=== PATIENT | male | born 1950 | race Caucasian/White ===

== ENCOUNTER 2020-01-27 17:12 | Emergency (ER) | payer MEDICARE ==
[~2020-01-27] VITALS: Ht 180.3 cm; Wt 86.2 kg
[2020-01-27] MEDS ORDERED: LEVSOD25 PO (17:26)
[2020-01-27] MEDS ORDERED: PRED20 PO (17:26)
[2020-01-27 18:10] LABS: BASOPHILS ABSOLUTE AUTO 0.01 K/mm3 (0.00-0.23); BASOPHILS PERCENT AUTO 0 % (0-2); EOSINOPHILS ABSOLUTE AUTO 0.05 K/mm3 (0.00-0.68); EOSINOPHILS PERCENT AUTO 1 % (0-6); Hematocrit 44.2 % (37.0-53.0); Hemoglobin 15.3 g/dL (13.5-17.5); IMMATURE GRAN ABSOLUTE AUTO 0.09 K/mm3 (0.00-0.10); IMMATURE GRAN PERCENT AUTO 1 % (0-1); LYMPHOCYTES ABSOLUTE AUTO 1.62 K/mm3 (0.84-5.20); LYMPHOCYTES PERCENT AUTO 16 % (21-46); MONOCYTES PERCENT AUTO 9 % (4-13); Mean Corpuscular HGB 31.6 pg (26.0-34.0); Mean Corpuscular HGB Conc 34.6 g/dL (31.5-36.5); Mean Corpuscular Volume 91 fL (80-100); Mean Platelet Volume 8.4 fL (9.1-12.4); NEUTROPHILS ABSOLUTE AUTO 7.57 K/mm3 (1.96-9.15); NEUTROPHILS PERCENT AUTO 74 % (41-73); Platelet Count 245 K/mm3 (150-400); RDW Coefficient Variation 13.7 % (11.7-14.2); RDW Standard Deviation 46.7 fL (35.1-46.3); Red Blood Cell Count 4.84 M/mm3 (4.30-5.90); White Blood Cell Count 10.24 K/mm3 (4.00-11.30)
[2020-01-27 18:19] LABS: Alanine Aminotransfer (ALT/SGP 28 U/L (12-78); Albumin, Blood 3.4 g/dL (3.4-5.0); Albumin/Globulin Ratio 1.1 (0.8-1.8); Alk Phos 115 U/L (50-136); Anion Gap 5 mmol/L (6-16); Aspartate Aminotrans (AST/SGOT 17 U/L (12-37); Bilirubin, Total 0.7 mg/dL (0.1-1.0); Blood Urea Nitrogen 15 mg/dL (8-24); Bun/Creatinine Ratio 21.1 (12.0-20.0); CO2, Blood 31 mmol/L (21-32); Chloride, Blood 94 mmol/L (98-108); Creatinine, Blood 0.71 mg/dL (0.60-1.20); Globulin, Blood 3.2 g/dL (2.2-4.0); Glomerular Filtration Rate >60 (60-); Glucose, Blood 97 mg/dL (70-99); Potassium, Blood 3.3 mmol/L (3.5-5.5); Sodium, Blood 130 mmol/L (136-145); Total Protein, Blood 6.6 g/dL (6.4-8.2)
[2020-01-27] MEDS ORDERED: CITRATE OF MAG296 ML PO (20:30)
[2020-01-27] MEDS ORDERED: Percocet 5-3251 EACH PO (20:30)
[2020-01-27] MEDS ORDERED: Cyclobenzaprine5 MG PO (23:23)
== END 2020-01-27 23:34 | disposition home or self-care (01) ==
LOC: ER 17:12
PROVIDERS: Physician Assistant
DX: D51.0 Vitamin B12 deficiency anemia due to intrinsic factor deficiency (principal); K59.00 Constipation, unspecified; M54.5 Low back pain; E03.9 Hypothyroidism, unspecified; F17.210 Nicotine dependence, cigarettes, uncomplicated; G89.29 Other chronic pain; Z91.030 Bee allergy status; Z79.52 Long term (current) use of systemic steroids; Z79.899 Other long term (current) drug therapy
CPT/HCPCS: 36415; 70450; 80053; 82607; 82746; 85025; 93005; 93010; 96361; 96374; 96375; 96376; 99284-25; A9270; J1885; J3010; J7030

== ENCOUNTER 2020-01-30 14:47 | Emergency (ER) | payer MEDICARE ==
[~2020-01-30] VITALS: Ht 180.3 cm; Wt 81.7 kg
[~2020-01-30 14:47] MED LIST: CITRATE OF MAG296 ML PO; Cyclobenzaprine5 MG PO; LEVSOD25 PO; PRED20 PO; Percocet 5-3251 EACH PO
[2020-01-30 18:01] LABS: BASOPHILS ABSOLUTE AUTO 0.01 K/mm3 (0.00-0.23); BASOPHILS PERCENT AUTO 0 % (0-2); EOSINOPHILS PERCENT AUTO 0 % (0-6); Hematocrit 40.7 % (37.0-53.0); Hemoglobin 14.1 g/dL (13.5-17.5); IMMATURE GRAN ABSOLUTE AUTO 0.09 K/mm3 (0.00-0.10); IMMATURE GRAN PERCENT AUTO 1 % (0-1); LYMPHOCYTES ABSOLUTE AUTO 0.48 K/mm3 (0.84-5.20); LYMPHOCYTES PERCENT AUTO 5 % (21-46); MONOCYTES ABSOLUTE AUTO 0.36 K/mm3 (0.16-1.47); MONOCYTES PERCENT AUTO 4 % (4-13); Mean Corpuscular HGB 31.7 pg (26.0-34.0); Mean Corpuscular HGB Conc 34.6 g/dL (31.5-36.5); Mean Corpuscular Volume 92 fL (80-100); Mean Platelet Volume 8.1 fL (9.1-12.4); NEUTROPHILS ABSOLUTE AUTO 8.19 K/mm3 (1.96-9.15); NEUTROPHILS PERCENT AUTO 90 % (41-73); Platelet Count 225 K/mm3 (150-400); RDW Coefficient Variation 13.8 % (11.7-14.2); RDW Standard Deviation 46.6 fL (35.1-46.3); Red Blood Cell Count 4.45 M/mm3 (4.30-5.90); White Blood Cell Count 9.13 K/mm3 (4.00-11.30)
[2020-01-30 18:19] LABS: Alanine Aminotransfer (ALT/SGP 27 U/L (12-78); Alk Phos 110 U/L (50-136); Anion Gap 8 mmol/L (6-16); Aspartate Aminotrans (AST/SGOT 12 U/L (12-37); Bilirubin, Total 0.5 mg/dL (0.1-1.0); Blood Urea Nitrogen 12 mg/dL (8-24); Bun/Creatinine Ratio 18.3 (12.0-20.0); CO2, Blood 30 mmol/L (21-32); Calcium, Blood 8.9 mg/dL (8.5-10.1); Chloride, Blood 100 mmol/L (98-108); Creatinine, Blood 0.66 mg/dL (0.60-1.20); Globulin, Blood 2.9 g/dL (2.2-4.0); Glomerular Filtration Rate >60 (60-); Glucose, Blood 111 mg/dL (70-99); Potassium, Blood 3.5 mmol/L (3.5-5.5); Sodium, Blood 138 mmol/L (136-145); Total Protein, Blood 5.9 g/dL (6.4-8.2); Troponin I 0.016 ng/mL (0.000-0.040)
[2020-01-30] MEDS ORDERED: Miralax17 GM PO (18:36)
== END 2020-01-30 19:00 | disposition home or self-care (01) ==
LOC: ER 14:47
PROVIDERS: Emergency Medicine
DX: R19.8 Other specified symptoms and signs involving the digestive system and abdomen (principal); E03.9 Hypothyroidism, unspecified; F17.210 Nicotine dependence, cigarettes, uncomplicated; Z79.52 Long term (current) use of systemic steroids; Z79.899 Other long term (current) drug therapy; Z91.030 Bee allergy status
CPT/HCPCS: 36415; 71045; 74018; 80053; 84484; 85025; 93005; 93010; 99284-25

== ENCOUNTER → 2020-04-29 | Outpatient (CLI) | payer MEDICARE ==
[~2020-04-29] MED LIST changes: +Ativan1 MG PO; +Cleocin HCl300 MG PO; +Magic Bullet10 MG PR; +Magnesium Citr296 ML PO; +Miralax17 GM PO; +Mupirocin22 GM TOP; +NEOPOLHCSU LEFTEAR
[2020-05-01 18:10] LABS: ADENOVIRUS F 40/41 Not Detected (Not Detected); ASTROVIRUS Not Detected (Not Detected); C DIFFICILE TOXIN A/B Not Detected (Not Detected); CRYPTOSPORIDIUM Not Detected (Not Detected); CYCLOSPORA CAYETANENSIS Not Detected (Not Detected); ENTAMOEBA HISTOLYTICA Not Detected (Not Detected); ENTEROAGGREGATIVE E COLI Not Detected (Not Detected); ENTEROPATHOGENIC E COLI Not Detected (Not Detected); ENTEROTOXIGENIC E COLI Not Detected (Not Detected); GIARDIA LAMBLIA Not Detected (Not Detected); NOROVIRUS GI/GII Not Detected (Not Detected); PLESIOMONAS SHIGELLOIDES Not Detected (Not Detected); ROTAVIRUS A Not Detected (Not Detected); SALMONELLA Not Detected (Not Detected); SAPOVIRUS Not Detected (Not Detected); SHIGA-TOXIN-PRODUCING E COLI Not Detected (Not Detected); SHIGELLA/ENTEROINVASIVE E COLI Not Detected (Not Detected); VIBRIO Not Detected (Not Detected); VIBRIO CHOLERAE Not Detected (Not Detected); YERSINIA ENTEROCOLITICA Not Detected (Not Detected)
== END ==
LOC: LAB SHORT 12:50
PROVIDERS: Physician Assistant
DX: R10.9 Unspecified abdominal pain (principal)
CPT/HCPCS: 0097U

== ENCOUNTER 2020-05-18 13:09 | Emergency (ER) | payer MEDICARE ==
[~2020-05-18] VITALS: Ht 180.3 cm; Wt 86.2 kg
[~2020-05-18 13:09] MED LIST changes: -Ativan1 MG PO; -Cleocin HCl300 MG PO; -Magic Bullet10 MG PR; -Magnesium Citr296 ML PO; -Mupirocin22 GM TOP; -NEOPOLHCSU LEFTEAR
[2020-05-18 13:41] LABS: BASOPHILS ABSOLUTE AUTO 0.02 K/mm3 (0.00-0.23); BASOPHILS PERCENT AUTO 0 % (0-2); EOSINOPHILS ABSOLUTE AUTO 0.04 K/mm3 (0.00-0.68); EOSINOPHILS PERCENT AUTO 0 % (0-6); Hemoglobin 13.7 g/dL (13.5-17.5); IMMATURE GRAN ABSOLUTE AUTO 0.08 K/mm3 (0.00-0.10); IMMATURE GRAN PERCENT AUTO 1 % (0-1); LYMPHOCYTES ABSOLUTE AUTO 0.75 K/mm3 (0.84-5.20); LYMPHOCYTES PERCENT AUTO 7 % (21-46); MONOCYTES ABSOLUTE AUTO 0.48 K/mm3 (0.16-1.47); MONOCYTES PERCENT AUTO 5 % (4-13); Mean Corpuscular HGB 30.3 pg (26.0-34.0); Mean Corpuscular HGB Conc 33.4 g/dL (31.5-36.5); Mean Corpuscular Volume 91 fL (80-100); Mean Platelet Volume 8.5 fL (9.1-12.4); NEUTROPHILS ABSOLUTE AUTO 9.29 K/mm3 (1.96-9.15); NEUTROPHILS PERCENT AUTO 87 % (41-73); NRBC ABSOLUTE 0.02 K/mm3 (0.00-0.02); NRBC Auto 0.2 /100 WBC (0.0-0.2); Platelet Count 255 K/mm3 (150-400); RDW Coefficient Variation 13.8 % (11.7-14.2); Red Blood Cell Count 4.52 M/mm3 (4.30-5.90); White Blood Cell Count 10.66 K/mm3 (4.00-11.30)
[2020-05-18 14:09] LABS: Alanine Aminotransfer (ALT/SGP 41 U/L (12-78); Albumin, Blood 3.1 g/dL (3.4-5.0); Alk Phos 130 U/L (50-136); Anion Gap 9 mmol/L (6-16); Aspartate Aminotrans (AST/SGOT 34 U/L (12-37); Bilirubin, Total 0.6 mg/dL (0.1-1.0); Blood Urea Nitrogen 12 mg/dL (8-24); CO2, Blood 28 mmol/L (21-32); Calcium, Blood 8.7 mg/dL (8.5-10.1); Chloride, Blood 97 mmol/L (98-108); Creatinine, Blood 0.75 mg/dL (0.60-1.20); Globulin, Blood 3.1 g/dL (2.2-4.0); Glomerular Filtration Rate >60 (60-); Glucose, Blood 126 mg/dL (70-99); Potassium, Blood 3.4 mmol/L (3.5-5.5); Sodium, Blood 134 mmol/L (136-145); Total Protein, Blood 6.2 g/dL (6.4-8.2); Troponin I 0.016 ng/mL (0.000-0.040)
[2020-05-18 15:07] LABS: Source, Urine Clean Catch
[2020-05-18 15:14] LABS: Appearance, Urine Clear (Clear); Bilirubin, Urine Neg (Neg); Blood, Urine Neg (Neg); Color, Urine Yellow (P-Yellow); Glucose Qualitative, Urine Neg (Neg); Ketones, Urine Neg (Neg); Leukocyte Esterase, Urine Neg (Neg); Nitrite, Urine Neg (Neg); Protein, Urine Neg (Neg); Urobilinogen, Urine NORM (Normal)
[2020-05-18] MEDS ORDERED: Cleocin HCl300 MG PO (16:53)
[2020-05-18] MEDS ORDERED: Magnesium Citr296 ML PO (16:53)
[2020-05-18] MEDS ORDERED: Magic Bullet10 MG PR (16:53)
== END 2020-05-18 17:30 | disposition home or self-care (01) ==
LOC: ER 13:09
PROVIDERS: Physician Assistant
DX: K12.2 Cellulitis and abscess of mouth (principal); K59.00 Constipation, unspecified; K05.10 Chronic gingivitis, plaque induced; Z79.52 Long term (current) use of systemic steroids
CPT/HCPCS: 36415; 74019; 80053; 81003; 83690; 84443; 84484; 85025; 93005; 93010; 96374; 99284-25; A9270; J2405; J7030

== ENCOUNTER 2020-06-21 17:30 | Emergency (ER) | payer MEDICARE ==
[~2020-06-21] VITALS: Ht 172.7 cm; Wt 90.7 kg
[~2020-06-21 17:30] MED LIST changes: +Cleocin HCl300 MG PO; +Magic Bullet10 MG PR; +Magnesium Citr296 ML PO
[2020-06-21 18:45] LABS: BASOPHILS ABSOLUTE AUTO 0.06 K/mm3 (0.00-0.23); BASOPHILS PERCENT AUTO 1 % (0-2); EOSINOPHILS ABSOLUTE AUTO 0.15 K/mm3 (0.00-0.68); EOSINOPHILS PERCENT AUTO 2 % (0-6); Hematocrit 39.9 % (37.0-53.0); IMMATURE GRAN ABSOLUTE AUTO 0.08 K/mm3 (0.00-0.10); IMMATURE GRAN PERCENT AUTO 1 % (0-1); LYMPHOCYTES ABSOLUTE AUTO 1.29 K/mm3 (0.84-5.20); LYMPHOCYTES PERCENT AUTO 18 % (21-46); MONOCYTES ABSOLUTE AUTO 0.56 K/mm3 (0.16-1.47); MONOCYTES PERCENT AUTO 8 % (4-13); Mean Corpuscular HGB 29.7 pg (26.0-34.0); Mean Corpuscular HGB Conc 32.6 g/dL (31.5-36.5); Mean Corpuscular Volume 91 fL (80-100); Mean Platelet Volume 8.4 fL (9.1-12.4); NEUTROPHILS ABSOLUTE AUTO 5.14 K/mm3 (1.96-9.15); NEUTROPHILS PERCENT AUTO 71 % (41-73); Platelet Count 220 K/mm3 (150-400); RDW Coefficient Variation 14.4 % (11.7-14.2); RDW Standard Deviation 47.1 fL (35.1-46.3); Red Blood Cell Count 4.37 M/mm3 (4.30-5.90); White Blood Cell Count 7.28 K/mm3 (4.00-11.30)
[2020-06-21 19:06] LABS: Alanine Aminotransfer (ALT/SGP 112 U/L (12-78); Albumin, Blood 3.1 g/dL (3.4-5.0); Albumin/Globulin Ratio 1.1 (0.8-1.8); Alk Phos 109 U/L (50-136); Anion Gap 10 mmol/L (6-16); Aspartate Aminotrans (AST/SGOT 99 U/L (12-37); Bilirubin, Total 0.8 mg/dL (0.1-1.0); Blood Urea Nitrogen 27 mg/dL (8-24); Bun/Creatinine Ratio 37.2 (12.0-20.0); CO2, Blood 29 mmol/L (21-32); Calcium, Blood 8.6 mg/dL (8.5-10.1); Chloride, Blood 103 mmol/L (98-108); Creatinine, Blood 0.73 mg/dL (0.60-1.20); Globulin, Blood 2.9 g/dL (2.2-4.0); Glomerular Filtration Rate >60 (60-); Glucose, Blood 123 mg/dL (70-99); Sodium, Blood 142 mmol/L (136-145); Troponin I 0.016 ng/mL (0.000-0.040)
[2020-06-21] MEDS ORDERED: Ativan1 MG PO (20:58)
[2020-06-21 21:07] LABS: Influenza A, PCR NEGATIVE (NEGATIVE); Influenza B, PCR NEGATIVE (NEGATIVE); Resp Syncytial Virus, PCR NEGATIVE (NEGATIVE); SARS-Cov-2 (COVID-19) PCR, MMC NEGATIVE (NEGATIVE)
== END 2020-06-21 21:45 | disposition home or self-care (01) ==
LOC: ER 17:30
PROVIDERS: Emergency Medicine
DX: F41.9 Anxiety disorder, unspecified (principal); E87.6 Hypokalemia; E03.9 Hypothyroidism, unspecified; Z79.52 Long term (current) use of systemic steroids; Z91.030 Bee allergy status; Z87.891 Personal history of nicotine dependence; Z79.899 Other long term (current) drug therapy; Z20.822 Contact with and (suspected) exposure to COVID-19
CPT/HCPCS: 0241U; 36415; 71045; 76705; 80053; 84484; 85025; 93005; 93010; 96374; 99285-25; A9270; J2060

== ENCOUNTER 2020-07-07 10:19 | Emergency (ER) | payer MEDICARE ==
[~2020-07-07] VITALS: Ht 172.7 cm; Wt 83.9 kg
[~2020-07-07 10:19] MED LIST changes: +Ativan1 MG PO
[2020-07-07 11:09] LABS: BASOPHILS ABSOLUTE AUTO 0.05 K/mm3 (0.00-0.23); BASOPHILS PERCENT AUTO 1 % (0-2); EOSINOPHILS ABSOLUTE AUTO 0.25 K/mm3 (0.00-0.68); EOSINOPHILS PERCENT AUTO 5 % (0-6); Hematocrit 40.3 % (37.0-53.0); Hemoglobin 13.2 g/dL (13.5-17.5); IMMATURE GRAN ABSOLUTE AUTO 0.05 K/mm3 (0.00-0.10); IMMATURE GRAN PERCENT AUTO 1 % (0-1); LYMPHOCYTES ABSOLUTE AUTO 1.23 K/mm3 (0.84-5.20); LYMPHOCYTES PERCENT AUTO 23 % (21-46); MONOCYTES ABSOLUTE AUTO 0.53 K/mm3 (0.16-1.47); MONOCYTES PERCENT AUTO 10 % (4-13); Mean Corpuscular HGB 29.9 pg (26.0-34.0); Mean Corpuscular HGB Conc 32.8 g/dL (31.5-36.5); Mean Corpuscular Volume 91 fL (80-100); Mean Platelet Volume 8.5 fL (9.1-12.4); NEUTROPHILS ABSOLUTE AUTO 3.28 K/mm3 (1.96-9.15); NEUTROPHILS PERCENT AUTO 61 % (41-73); Platelet Count 179 K/mm3 (150-400); RDW Coefficient Variation 15.2 % (11.7-14.2); RDW Standard Deviation 50.4 fL (35.1-46.3); Red Blood Cell Count 4.42 M/mm3 (4.30-5.90); White Blood Cell Count 5.39 K/mm3 (4.00-11.30)
[2020-07-07 11:41] LABS: Alanine Aminotransfer (ALT/SGP 166 U/L (12-78); Albumin, Blood 3.2 g/dL (3.4-5.0); Albumin/Globulin Ratio 1.1 (0.8-1.8); Alk Phos 104 U/L (50-136); Anion Gap 16 mmol/L (6-16); Aspartate Aminotrans (AST/SGOT 204 U/L (12-37); Bilirubin, Total 1.4 mg/dL (0.1-1.0); Blood Urea Nitrogen 16 mg/dL (8-24); Bun/Creatinine Ratio 25.6 (12.0-20.0); CO2, Blood 24 mmol/L (21-32); Calcium, Blood 8.4 mg/dL (8.5-10.1); Chloride, Blood 101 mmol/L (98-108); Creatinine, Blood 0.62 mg/dL (0.60-1.20); Globulin, Blood 2.8 g/dL (2.2-4.0); Glomerular Filtration Rate >60 (60-); Glucose, Blood 62 mg/dL (70-99); Potassium, Blood 3.4 mmol/L (3.5-5.5); Sodium, Blood 141 mmol/L (136-145)
[2020-07-07] MEDS ORDERED: NEOPOLHCSU LEFTEAR (16:42)
[2020-07-07] MEDS ORDERED: Mupirocin22 GM TOP (16:42)
== END 2020-07-07 17:00 | disposition home or self-care (01) ==
LOC: ER 10:19
PROVIDERS: Emergency Medicine
DX: H60.92 Unspecified otitis externa, left ear (principal); E03.9 Hypothyroidism, unspecified; Z79.52 Long term (current) use of systemic steroids; Z79.899 Other long term (current) drug therapy; Z87.891 Personal history of nicotine dependence
CPT/HCPCS: 71045; 74018; 80053; 84443; 85025; 93005; 93010; 99285-25; J2060; J3420

== ENCOUNTER 2023-04-12 19:39 | Inpatient (IN) | payer MEDICARE, MEDICAID ==
[~2023-04-12] VITALS: Ht 172.7 cm; Wt 92.0 kg
[~2023-04-12 19:39] MED LIST changes: +Mupirocin22 GM TOP; +NEOPOLHCSU LEFTEAR
[2023-04-12 20:08] LABS: BASOPHILS ABSOLUTE AUTO 0.01 K/mm3 (0.00-0.23); BASOPHILS PERCENT AUTO 0 % (0-2); EOSINOPHILS PERCENT AUTO 0 % (0-6); Hematocrit 37.7 % (37.0-53.0); Hemoglobin 11.8 g/dL (13.5-17.5); IMMATURE GRAN ABSOLUTE AUTO 0.04 K/mm3 (0.00-0.10); IMMATURE GRAN PERCENT AUTO 0 % (0-1); LYMPHOCYTES ABSOLUTE AUTO 0.34 K/mm3 (0.84-5.20); LYMPHOCYTES PERCENT AUTO 4 % (21-46); MONOCYTES ABSOLUTE AUTO 0.44 K/mm3 (0.16-1.47); MONOCYTES PERCENT AUTO 5 % (4-13); Mean Corpuscular HGB 29.2 pg (26.0-34.0); Mean Corpuscular HGB Conc 31.3 g/dL (31.5-36.5); Mean Corpuscular Volume 93 fL (80-100); Mean Platelet Volume 9.5 fL (9.1-12.4); NEUTROPHILS ABSOLUTE AUTO 8.59 K/mm3 (1.96-9.15); NEUTROPHILS PERCENT AUTO 91 % (41-73); Platelet Count 180 K/mm3 (150-400); RDW Coefficient Variation 17.6 % (11.7-14.2); Red Blood Cell Count 4.04 M/mm3 (4.30-5.90); White Blood Cell Count 9.42 K/mm3 (4.00-11.30)
[2023-04-12 20:28] LABS: Base Excess Venous 9.1 mmol/L; Bicarbonate Venous 30.6 mmol/L (24.0-30.0); PCO2 Venous 56.7 mmHg (38-42); pH Blood Venous 7.39 (7.34-7.37)
[2023-04-12 20:37] LABS: Albumin, Blood 2.8 g/dL (3.4-5.0); Albumin/Globulin Ratio 0.8 (0.8-1.8); Bilirubin, Total 0.6 mg/dL (0.1-1.0); Bun/Creatinine Ratio 24.3 (12.0-20.0); Calcium, Blood 8.7 mg/dL (8.5-10.1); Creatinine, Blood 1.36 mg/dL (0.60-1.20); Globulin, Blood 3.4 g/dL (2.2-4.0); Potassium, Blood 4.1 mmol/L (3.5-5.5); Thyroid Stimulating Hormone 0.33 uIU/mL (0.360-4.800); Total Protein, Blood 6.2 g/dL (6.4-8.2)
[2023-04-12] MEDS ORDERED: MAGCHL64ER (20:40)
[2023-04-12] MEDS ORDERED: POTA10T PO (20:40)
[2023-04-12] MEDS ORDERED: EUTHYROX125 MCG PO (20:41)
[2023-04-12] MEDS ORDERED: VITAMIN B125000 MC1 IM (20:41)
[2023-04-12] MEDS ORDERED: ASCO500 PO (20:41)
[2023-04-12] MEDS ORDERED: IBUP800 (20:43)
[2023-04-12 21:37] LABS: Influenza A, PCR NEGATIVE (NEGATIVE); Influenza B, PCR NEGATIVE (NEGATIVE); Resp Syncytial Virus, PCR NEGATIVE (NEGATIVE); SARS-Cov-2 (COVID-19) PCR, MMC NEGATIVE (NEGATIVE)
[2023-04-13 00:20] VITALS: BP 128/81
--- NOTE | 2023-04-13 02:17 | NUR ---
PT ARRIVED TO UNIT AT 2300. PT WAS ABLE TO TRANSFER HIMSELF FROM [facility] TO HOSPITAL BED. PT A&O x4, VSS, AFEBRILE. PT PLEASANT AND TALKATIVE. PT EXPERIENCED DYSPNEA WHILE TRANSFERING TO THE HOSPITAL BED, HOB ELEVATED. PT ON 2L VIA NC, RESP RATE EVEN AND UNLABORED, PT OXYGEN SATURATION AT 100%. EDEMA PRESENT TO BILAT FEET/ANKLES. PT HAS A LARGE RED/PURPLE SORE TO L FOOT, ULCERATION TO THE TOP OF L FOOT, WITH WEEPING BLISTERS. PRN NORCO AVAILABLE FOR PAIN MANAGEMENT. PT EDUCATION PROVIDED REGARDING [facility]'S NO SMOKING POLICY. PT ORIENTED TO ROOM AND CALL LIGHT. BED IN LOWEST POSITION, CALL LIGHT WITHIN REACH, WCTM.
[2023-04-13 04:31] VITALS: BP 111/63
[2023-04-13 05:29] LABS: Bun/Creatinine Ratio 22.7 (12.0-20.0); Calcium, Blood 8.5 mg/dL (8.5-10.1); Creatinine, Blood 1.28 mg/dL (0.60-1.20); Potassium, Blood 3.9 mmol/L (3.5-5.5)
[2023-04-13 07:30] VITALS: BP 126/67
[2023-04-13 15:08] VITALS: BP 101/74
--- NOTE | 2023-04-13 18:47 | NUR ---
SUMMARY- PT A/O X4, HAS MOD UNDERLINE ANXIETY AND DELUSIONS ABOUT MEDICATIONS AND AILMENTS IN BODY. PT HAS BEEN ON 4L NC, SATS UPPER 90'S. CELLULITIS IN L DORSAL FOOT, WITH LG DRIED BLISTER 5X5CM, CLEANSED WITH NS, REMOVED OLD TOILET PAPER STUCK TO SURFACE FROM HOME BANDAGE. ABX OINT XEREFORM, ABD, CHICKEN SKIN AND BRITTNEY WARP DONE AT 1500 WOUND CARE CONSULT RN NOT AVAILABLE TODAY. SHE CAN RE-EVAL TOMORROW WHEN AVAIL. PT HAVING PAIN DEEP IN FOOT, STATES PARTIAL RELEIF WITH NORCO 5MG, CALLED AND HAD FREQ INDREASED TO Q4. PT IS BEING DIURESED, VOIDING LG AMOUNTS. TOLERATING FOOD AND FLUIDS. HAS BEEN ON BEDREST ALL DAYL TELE SR 80-90'S. LUNGS CLEAR, NO SOB NOTED TODAY.
[2023-04-13 19:16] VITALS: BP 107/89
[2023-04-14 03:37] VITALS: BP 116/77
[2023-04-14 05:42] LABS: BASOPHILS ABSOLUTE AUTO 0.01 K/mm3 (0.00-0.23); BASOPHILS PERCENT AUTO 0 % (0-2); EOSINOPHILS ABSOLUTE AUTO 0.02 K/mm3 (0.00-0.68); EOSINOPHILS PERCENT AUTO 0 % (0-6); Hematocrit 35.6 % (37.0-53.0); Hemoglobin 10.9 g/dL (13.5-17.5); IMMATURE GRAN ABSOLUTE AUTO 0.05 K/mm3 (0.00-0.10); IMMATURE GRAN PERCENT AUTO 1 % (0-1); LYMPHOCYTES ABSOLUTE AUTO 0.66 K/mm3 (0.84-5.20); LYMPHOCYTES PERCENT AUTO 9 % (21-46); MONOCYTES ABSOLUTE AUTO 0.56 K/mm3 (0.16-1.47); MONOCYTES PERCENT AUTO 8 % (4-13); Mean Corpuscular HGB 28.4 pg (26.0-34.0); Mean Corpuscular HGB Conc 30.6 g/dL (31.5-36.5); Mean Corpuscular Volume 93 fL (80-100); Mean Platelet Volume 9.2 fL (9.1-12.4); NEUTROPHILS ABSOLUTE AUTO 6.13 K/mm3 (1.96-9.15); NEUTROPHILS PERCENT AUTO 83 % (41-73); Platelet Count 184 K/mm3 (150-400); RDW Coefficient Variation 17.2 % (11.7-14.2); RDW Standard Deviation 57.1 fL (35.1-46.3); Red Blood Cell Count 3.84 M/mm3 (4.30-5.90); White Blood Cell Count 7.43 K/mm3 (4.00-11.30)
[2023-04-14 06:19] LABS: Bun/Creatinine Ratio 26.2 (12.0-20.0); Calcium, Blood 8.8 mg/dL (8.5-10.1); Creatinine, Blood 1.22 mg/dL (0.60-1.20); Potassium, Blood 3.3 mmol/L (3.5-5.5)
[2023-04-14 07:36] VITALS: BP 107/77
[2023-04-14 14:53] VITALS: BP 112/73
--- NOTE | 2023-04-14 18:45 | NUR ---
SUMMARY- PT A/O X4, MOD ANXIETY AT BASELINE. NONCOMPLIANT WITH MULT MEDS AND TX RELATED TO PARANOIA OF MEDICAL PROCEDURES. PT IS GRANDIOSE AND PARANOID. PT WORKED WITH PHYSICAL THERAPY TODAY, BUT WAS DC'D OFF OF SERVICE BECAUSE HIS UNWILLINGNESS TO WORK WITH P.T. PT'S L FOOT WOUND DRESSED TODAY BY WOUND RN, XEREFORM TO BLISTER ON DORSAL SURFACE OF FOOT, KEREL AND BRITTNEY. LE EDEMA. HAS BEEN DIURESING PT AGGRESSIVELY. ALSO STARTED ON BETA TAPAN TODAY. HR HAD GONE INTO 150 RANGE THIS AM MULT TIMES, DR LAKHANI WAS AT BEDSIDE SHORTLY AFTER ONE OF THE EPOSODES AND IS AWARE. HR CAME DOWN INTO SR 90'S THIS AFTERNOON. PT'S PAIN CONTROLLED WITH NORCO 5MG, APPROX Q6. PT DOESN'T LIKE THE "DRUNK FEELING OF THE MED, BUT TAKES IT FOR THE PAIN. WILL REPORT ALL TO NOC RN
[2023-04-14 19:10] VITALS: BP 108/97
--- NOTE | 2023-04-14 21:57 | NUR ---
TELE MONITOR. THIS RN NOTIFIED BY TELE MONITOR THAT PATIENT HAD A 6 BEAT RUN OF V-TACH. PATIENT ASYMPTOMAIC-PATIENT DENIED CHEST PAIN/PRESSURE/TIGHTNESS OR ANY CHANGES.
--- NOTE | 2023-04-14 22:27 | NUR ---
HOSPITALIST NOTIFIED. HOSPITALIST CALLED AND NOTIFIED OF PATIENTS 6-BEAT RUN OF V-TACH AND PATIENT BEING ASYMPTOMIC-NO CHANGES ORDERED AT THIS TIME.
[2023-04-14 23:25] VITALS: BP 96/71
--- NOTE | 2023-04-14 23:34 | NUR ---
HOSPITALIST CONTACTED. HOSPITALIST CONTACTED AND NOTIFIED OF PATIENTS B/P/ B/P96/71. HOSPITALIST SAID TO NOTIFY IF MAP IS <65.
--- NOTE | 2023-04-15 00:15 | NUR ---
PATIENT C/O FEELI NAUSEOUS. PATIENT REPORTS FEELING LIKE HE WONT WAKE UP IF HE GOES TO SLEEP AND THAT HE SHOULD JUST BE ON A MEDICATION HE HAS TAKEN BEFORE THAT CLEARS EVERYTHING UP. TALKED WITH PATIENT REGARDING HIS CURRENT FEELING AND THOUGHTS-PATIENT EXPLAINS THAT HE IS NOW FEELING HOT, AND THAT HE THINKS PUTTING A WARM BLANKET ON HIS FOOT HAS SPREAD THE INFECTION ON HIS FOOT. ASKED PATIENT IF HE WAS FEELING ANXIOUS ABOUT HIS CURRENT HOSPITAL STAY-PATIENT STATED HE WAS AND THAT HE IS JUST GETTING A LOT OF NEW MEDICATIONS AND HE IS STARTING TO SWEAT BECAUSE HE FEELS HOT-PATIENTS TEMPERATURE CHECKED AT 0010 WAS 97.5 WHEN INSPECTOR AIR CARRIER TOOK TEMPERATURE FOR PATIENTS C/O FEELING HOT. TALKED WITH PATIENT ABOUT SOMETHING TO HELP WITH THE NAUSEA AND ANXIETY. PATIENT REPORTS THAT HE WOULD LIKE TO TRY SOMETHING FOR ANXIETY AND NAUSEA.
--- NOTE | 2023-04-15 00:45 | NUR ---
HOSPITALIST CONTACTED. HOSPITALIST DR. SOTELO CONTACTED AND NOTIFIED OF PATIENTS C/O FEELING HOT AND ANXIETY. DR. SOTELO ORDERED FOR A ONE TIME DOSE OF ATIVAN-SEE ORDERS. IF ATIVAN DOES NOT HELP TO NOTIFY HOSPITALIST .
[2023-04-15 04:23] VITALS: BP 98/85
[2023-04-15 05:00] LABS: BASOPHILS ABSOLUTE AUTO 0.01 K/mm3 (0.00-0.23); BASOPHILS PERCENT AUTO 0 % (0-2); EOSINOPHILS ABSOLUTE AUTO 0.09 K/mm3 (0.00-0.68); EOSINOPHILS PERCENT AUTO 1 % (0-6); Hematocrit 37.4 % (37.0-53.0); Hemoglobin 11.6 g/dL (13.5-17.5); IMMATURE GRAN ABSOLUTE AUTO 0.04 K/mm3 (0.00-0.10); IMMATURE GRAN PERCENT AUTO 1 % (0-1); LYMPHOCYTES ABSOLUTE AUTO 0.94 K/mm3 (0.84-5.20); LYMPHOCYTES PERCENT AUTO 13 % (21-46); MONOCYTES ABSOLUTE AUTO 0.69 K/mm3 (0.16-1.47); MONOCYTES PERCENT AUTO 9 % (4-13); Mean Corpuscular HGB 28.8 pg (26.0-34.0); Mean Corpuscular Volume 93 fL (80-100); Mean Platelet Volume 9.3 fL (9.1-12.4); NEUTROPHILS ABSOLUTE AUTO 5.74 K/mm3 (1.96-9.15); NEUTROPHILS PERCENT AUTO 77 % (41-73); Platelet Count 194 K/mm3 (150-400); RDW Coefficient Variation 16.9 % (11.7-14.2); RDW Standard Deviation 56.7 fL (35.1-46.3); Red Blood Cell Count 4.03 M/mm3 (4.30-5.90); White Blood Cell Count 7.51 K/mm3 (4.00-11.30)
--- NOTE | 2023-04-15 05:09 | NUR ---
SHIFT SUMMARY. PATIENT IS A/O X4, ABLE TO MAKE HIS NEEDS KNOWN. PATIENT ANXIOUS TONIGHT-MEDICATED PER EMAR X1. PATIENT C/O PAIN-MEDICATED PER EMAR X1. PATIENT AWAKE A LOT TONIGHT. HAVING TROUBLE SLEEPING-ANXIOUS THAT HE MIGHT NOT WAKE UP, TALKED WITH PATIENT-PATIENT DETERMINED HE WAS WORRIED ABOUT ALL THE CHANGES HE HAS HAD WITH HIS MEDICATIONS. PATIENT GIVEN SALTINE CRACKERS FOR C/O NAUSEA. BED IS LOCKED IN THE LOWEST POSITION WITH CALL LIGHT IN REACH.
[2023-04-15 05:23] LABS: Bun/Creatinine Ratio 29.6 (12.0-20.0); Calcium, Blood 8.9 mg/dL (8.5-10.1); Creatinine, Blood 1.15 mg/dL (0.60-1.20); Potassium, Blood 3.2 mmol/L (3.5-5.5)
[2023-04-15 07:25] VITALS: BP 119/83
[2023-04-15 10:21] VITALS: BP 102/81
[2023-04-15 16:09] VITALS: BP 110/71
--- NOTE | 2023-04-15 18:29 | NUR ---
SHIFT SUMMARY: PT IS A 73 YEAR OLD MALE HERE FOR CHF EXACERBATION AND CELLULITIS OF HIS LEFT LOWER EXTREMITY WITH A WOUND ON TOP OF HIS LEFT FOOT. HE IS RECEIVING IV ANTIBIOTICS AND WOUND CARE FOR HIS CELLULITIS AND DIURETICS FOR HIS CHF. WOUND CARE WAS PROVIDED TODAY; FOLLOWING WOUND CARE INSTRUCTIONS. PATIENT REMAINS ON BEDREST, BUT IS ABLE TO REPOSITION HIMSELF IN BED, AND USE THE URINAL. BLOOD PRESSURES HAVE BEEN STABLE THROUGHOUT THE SHIFT AND NO EVENTS ON TELEMETRY. HE USED HIS CALL LIGHT AND MAKES NEEDS KNOWN. PLAN OF CARE ONGOING.
[2023-04-15 19:19] VITALS: BP 105/74
[2023-04-16 03:30] VITALS: BP 100/70
--- NOTE | 2023-04-16 05:12 | NUR ---
NOC SHIFT SUMMARY: ALERT AND ORIENTED X 4. BEDREST. NORCO GIVEN THIS AM. PATIENT DOES NOT LIKE THE WAY IT MAKES HIM FEEL. URINAL AT BEDSIDE. BED IN LOW POSITION. CALL LIGHT WITHIN REACH.
[2023-04-16 05:15] LABS: BASOPHILS ABSOLUTE AUTO 0.01 K/mm3 (0.00-0.23); BASOPHILS PERCENT AUTO 0 % (0-2); EOSINOPHILS ABSOLUTE AUTO 0.07 K/mm3 (0.00-0.68); EOSINOPHILS PERCENT AUTO 1 % (0-6); Hemoglobin 11.2 g/dL (13.5-17.5); IMMATURE GRAN ABSOLUTE AUTO 0.04 K/mm3 (0.00-0.10); IMMATURE GRAN PERCENT AUTO 1 % (0-1); LYMPHOCYTES ABSOLUTE AUTO 0.89 K/mm3 (0.84-5.20); LYMPHOCYTES PERCENT AUTO 14 % (21-46); MONOCYTES ABSOLUTE AUTO 0.65 K/mm3 (0.16-1.47); MONOCYTES PERCENT AUTO 10 % (4-13); Mean Corpuscular HGB 28.7 pg (26.0-34.0); Mean Corpuscular HGB Conc 31.1 g/dL (31.5-36.5); Mean Corpuscular Volume 92 fL (80-100); Mean Platelet Volume 9.7 fL (9.1-12.4); NEUTROPHILS ABSOLUTE AUTO 4.58 K/mm3 (1.96-9.15); NEUTROPHILS PERCENT AUTO 73 % (41-73); Platelet Count 195 K/mm3 (150-400); RDW Coefficient Variation 16.2 % (11.7-14.2); RDW Standard Deviation 54.3 fL (35.1-46.3); White Blood Cell Count 6.24 K/mm3 (4.00-11.30)
[2023-04-16 06:10] LABS: Anion Gap Unable to Calculate mmol/L (6-16); Blood Urea Nitrogen 30 mg/dL (8-24); Bun/Creatinine Ratio 30.7 (12.0-20.0); Chloride, Blood 86 mmol/L (98-108); Creatinine, Blood 0.98 mg/dL (0.60-1.20); Glomerular Filtration Rate 80 (60-); Glucose, Blood 126 mg/dL (70-99); Potassium, Blood 3.9 mmol/L (3.5-5.5); Sodium, Blood 134 mmol/L (136-145)
[2023-04-16 06:12] LABS: CO2, Blood >45 mmol/L (21-32)
[2023-04-16 07:23] VITALS: BP 90/60
[2023-04-16 09:09] VITALS: BP 95/66
[2023-04-16 10:21] VITALS: BP 89/67
[2023-04-16 16:55] VITALS: BP 127/83
--- NOTE | 2023-04-16 18:39 | NUR ---
SHIFT SUMMARY: PT IS A 73 YEAR OLD MALE HERE FOR CHF EXACERBATION AND CELLULITIS OF HIS L LOWER EXTREMITY WITH A WOUND ON HIS DORSAL L FOOT. HE IS RECEIVING IV ANTIBIOTIC TREATMENT AND WOUND CARE. HE DID AMBULATE WITH THE FRONT WHEEL WALKER TO THE BATHROOM TWICE TODAY AND HAD 2 BOWEL MOVEMENTS. HE IS ANXIOUS, PARANOID, AND ISN'T ENTRUSTING WITH CARE BEING PROVIDED; EVEN WITH EDUCATION. TODAY HE STATED THAT HE HAD AN ADVERSE REACTION TO HIS IV ANTIBIOTIC; SWEATS AND PASSING OUT. NEITHER OF THESE SYMPTOMS WERE OBSERVED. NO EVENTS OF TELEMETRY AND VITALS WERE STABLE. DOCTOR NOTIFIED OF THIS EVENT AND NO ORDERS OR ADVISEMENT AFTER INFORMATION WAS PROVIDED. WHEN CAME TIME TO ADMINISTER 1600 DOSE OF IV ANTIBIOTICS, PATIENT REFUSED. EDUCATION PROVIDED, PATIENT CONTINUED TO REFUSE. HE VOICES THAT HE DOESN'T FEEL THAT STAFF IS LISTENING TO HIM AND THAT WE DON'T KNOW WHAT WE ARE DOING AND HE WOULD LIKE TO HAVE SOMEONE WHO KNOWS WHAT THEY ARE DOING. PATIENT'S THOUGHTS ARE CONCRETE AND THERE ISN'T MUCH CONVINCING HIM. HE IS IN BED, CALL LIGHT WITHIN REACH, BED IN LOWEST POSITION, AND NO SIGNS OR SYMPTOMS OF DISTRESS. PLAN OF CARE ONGOING.
[2023-04-16 19:25] VITALS: BP 115/74
[2023-04-17 03:21] VITALS: BP 96/81
[2023-04-17 05:21] LABS: BASOPHILS ABSOLUTE AUTO 0.01 K/mm3 (0.00-0.23); BASOPHILS PERCENT AUTO 0 % (0-2); EOSINOPHILS ABSOLUTE AUTO 0.05 K/mm3 (0.00-0.68); EOSINOPHILS PERCENT AUTO 1 % (0-6); Hematocrit 33.7 % (37.0-53.0); Hemoglobin 10.6 g/dL (13.5-17.5); IMMATURE GRAN ABSOLUTE AUTO 0.03 K/mm3 (0.00-0.10); IMMATURE GRAN PERCENT AUTO 0 % (0-1); LYMPHOCYTES ABSOLUTE AUTO 0.78 K/mm3 (0.84-5.20); LYMPHOCYTES PERCENT AUTO 12 % (21-46); MONOCYTES ABSOLUTE AUTO 0.54 K/mm3 (0.16-1.47); MONOCYTES PERCENT AUTO 8 % (4-13); Mean Corpuscular HGB 28.9 pg (26.0-34.0); Mean Corpuscular HGB Conc 31.5 g/dL (31.5-36.5); Mean Corpuscular Volume 92 fL (80-100); Mean Platelet Volume 9.3 fL (9.1-12.4); NEUTROPHILS ABSOLUTE AUTO 5.27 K/mm3 (1.96-9.15); NEUTROPHILS PERCENT AUTO 79 % (41-73); Platelet Count 200 K/mm3 (150-400); RDW Coefficient Variation 15.9 % (11.7-14.2); RDW Standard Deviation 53.6 fL (35.1-46.3); Red Blood Cell Count 3.67 M/mm3 (4.30-5.90); White Blood Cell Count 6.68 K/mm3 (4.00-11.30)
--- NOTE | 2023-04-17 05:26 | NUR ---
NOC SHIFT SUMMARY: PT. DECLINGING ANTIBIOTICS FOR LEFT FOOT CELLULITIS. PATIENT HAS MULTIPLE THINGS ON HIS BOARD TO TALK WITH MD ABOUT TODAY. MORPHINE GIVEN AT BEDTIME. SLEPT SOME OVERNIGHT. BED IN LOW POSITION. CALL LIGHT WITHIN REACH.
[2023-04-17 06:43] LABS: Blood Urea Nitrogen 27 mg/dL (8-24); Chloride, Blood 85 mmol/L (98-108); Creatinine, Blood 0.84 mg/dL (0.60-1.20); Glomerular Filtration Rate 91 (60-); Glucose, Blood 115 mg/dL (70-99); Potassium, Blood 3.3 mmol/L (3.5-5.5); Sodium, Blood 133 mmol/L (136-145)
[2023-04-17 06:44] LABS: Anion Gap Unable to Calculate mmol/L (6-16)
[2023-04-17 06:45] LABS: CO2, Blood >45 mmol/L (21-32)
[2023-04-17 07:42] VITALS: BP 99/71
--- NOTE | 2023-04-17 09:00 | NUR ---
pt laying in bed awake a/ox4, lower [place], pleasant and cooperative with care, he is excessively talkative, refused iv abx, states he's reacting badly to it, expressing frustration with medications/abx that are ordered, lungs are dim t/o, resp even and unlabored at rest, currently on 6 liters 02 via n/c, no cough noted, hrr, tele in place running sr in the 90's, piv to lfa, site is clear and patent, btx4, abd flat soft nontende, voids without diff, skin has a large wound to the top of the left foot, pix taken and in chart, dressing in place, unable to palpate pedal pulse, did find with doppler, jeremie correa, call light in reach.
[2023-04-17 09:08] LABS: Base Excess Venous 22.8 mmol/L; Bicarbonate Venous 42.4 mmol/L (24.0-30.0); PCO2 Venous 72.9 mmHg (38-42); pH Blood Venous 7.42 (7.34-7.37)
[2023-04-17 16:36] VITALS: BP 113/79
--- NOTE | 2023-04-17 19:03 | NUR ---
pt has been very talkative, and directing his care and medications. podiatry saw him today, will order xray and doppler, iv abx was changed to levaquin, he was ok with it. dressing to foot was changed, Dr. Gardner was ok with mepilex, pictures were taken and placed on chart. no further changes this shift, call light in reach.
[2023-04-17 19:41] VITALS: BP 113/77
[2023-04-18 02:48] VITALS: BP 110/81
--- NOTE | 2023-04-18 04:21 | NUR ---
NOC SHIFT SUMMARY; PT. VERY ANXIOUS AT BEGINNING OF SHIFT. ZYPREXA X 1 DOSE GIVEN WITH GOOD EFFECT. PATIENT UP TO BATHROOM INDEPENDENTLY WITH WALKER. NO C/O PAIN. AFRIN FOR NASAL CONGESTION NEEDED TWICE A DAY. BED IN LOW POSITION. CALL LIGHT WITHIN REACH.
[2023-04-18 05:02] LABS: BASOPHILS ABSOLUTE AUTO 0.01 K/mm3 (0.00-0.23); BASOPHILS PERCENT AUTO 0 % (0-2); EOSINOPHILS ABSOLUTE AUTO 0.08 K/mm3 (0.00-0.68); EOSINOPHILS PERCENT AUTO 1 % (0-6); Hemoglobin 11.1 g/dL (13.5-17.5); IMMATURE GRAN ABSOLUTE AUTO 0.07 K/mm3 (0.00-0.10); IMMATURE GRAN PERCENT AUTO 1 % (0-1); LYMPHOCYTES ABSOLUTE AUTO 0.91 K/mm3 (0.84-5.20); LYMPHOCYTES PERCENT AUTO 12 % (21-46); MONOCYTES ABSOLUTE AUTO 0.74 K/mm3 (0.16-1.47); MONOCYTES PERCENT AUTO 10 % (4-13); Mean Corpuscular HGB 28.8 pg (26.0-34.0); Mean Corpuscular HGB Conc 31.7 g/dL (31.5-36.5); Mean Corpuscular Volume 91 fL (80-100); NEUTROPHILS ABSOLUTE AUTO 5.72 K/mm3 (1.96-9.15); NEUTROPHILS PERCENT AUTO 76 % (41-73); Platelet Count 231 K/mm3 (150-400); RDW Coefficient Variation 15.9 % (11.7-14.2); RDW Standard Deviation 52.7 fL (35.1-46.3); Red Blood Cell Count 3.86 M/mm3 (4.30-5.90); White Blood Cell Count 7.53 K/mm3 (4.00-11.30)
[2023-04-18 05:37] LABS: Bun/Creatinine Ratio 23.8 (12.0-20.0); Creatinine, Blood 1.01 mg/dL (0.60-1.20); Potassium, Blood 3.2 mmol/L (3.5-5.5)
[2023-04-18 07:46] VITALS: BP 100/86
[2023-04-18 14:55] VITALS: BP 122/97
--- NOTE | 2023-04-18 18:35 | NUR ---
SHIFT SUMMARY PATIENT IS ALERT AND ORIENTED. PATIENT HAS BEEN IND IN ROOM THIS SHIFT. PATIENT HAS HAD NO ACUTE EVENTS THIS SHIFT. PATIENT HAS BEEN ON 3L NC ALL SHIFT. PATIENT HAS REQUESTED PAIN MEDS THIS SHIFT WITH MINIMAL EFFECT. PATIENT HAS NOT COMPLAINED OF SOB, NAUSEA OR VOMITTING THIS SHIFT. BED IN LOCKED AND LOWEST POSITION. CALL LIGHT IN PLACE. WILL MONITOR UNTIL SHIFT CHANGE.
[2023-04-18 19:41] VITALS: BP 102/64
[2023-04-19 03:54] VITALS: BP 112/69
[2023-04-19 05:42] LABS: BASOPHILS ABSOLUTE AUTO 0.01 K/mm3 (0.00-0.23); BASOPHILS PERCENT AUTO 0 % (0-2); EOSINOPHILS ABSOLUTE AUTO 0.04 K/mm3 (0.00-0.68); EOSINOPHILS PERCENT AUTO 1 % (0-6); Hematocrit 38.2 % (37.0-53.0); Hemoglobin 11.9 g/dL (13.5-17.5); IMMATURE GRAN ABSOLUTE AUTO 0.08 K/mm3 (0.00-0.10); IMMATURE GRAN PERCENT AUTO 1 % (0-1); LYMPHOCYTES ABSOLUTE AUTO 0.75 K/mm3 (0.84-5.20); LYMPHOCYTES PERCENT AUTO 10 % (21-46); MONOCYTES ABSOLUTE AUTO 0.59 K/mm3 (0.16-1.47); MONOCYTES PERCENT AUTO 8 % (4-13); Mean Corpuscular HGB 28.5 pg (26.0-34.0); Mean Corpuscular HGB Conc 31.2 g/dL (31.5-36.5); Mean Corpuscular Volume 92 fL (80-100); Mean Platelet Volume 8.9 fL (9.1-12.4); NEUTROPHILS ABSOLUTE AUTO 5.76 K/mm3 (1.96-9.15); NEUTROPHILS PERCENT AUTO 80 % (41-73); Platelet Count 264 K/mm3 (150-400); RDW Standard Deviation 53.6 fL (35.1-46.3); Red Blood Cell Count 4.17 M/mm3 (4.30-5.90); White Blood Cell Count 7.23 K/mm3 (4.00-11.30)
[2023-04-19 06:12] LABS: Bun/Creatinine Ratio 25.4 (12.0-20.0); Creatinine, Blood 0.9 mg/dL (0.60-1.20); Free Thyroxine 0.89 ng/dL (0.70-1.60); Magnesium, Blood 1.8 mg/dL (1.6-2.4); Potassium, Blood 3.2 mmol/L (3.5-5.5); Thyroid Stimulating Hormone 1.54 uIU/mL (0.360-4.800); Triiodothyronine, Free 1.62 pg/mL (2.18-3.98)
--- NOTE | 2023-04-19 06:36 | NUR ---
SHIFT SUMMARY 73 YR M ADMITTED ON 04/12/23 FOR LEFT FOOT CELLULITIS. FULL CODE. NO ACUTE CHANGES THIS SHIFT. PT STATED THAT HE IS NOT HAPPY WITH HIS MEDICATIONS AND THEY KEEP CHANGING EACH SHIFT BECAUSE HE HAS HAD DIFFERENT NURSES AND DOCTORS. THIS NURSE EXPLAINED TO HIM THAT HIS MEDS DO NOT CHANGE PER SHIFT. PT SUGGESTED THAT THAT HE WAS BEING GIVEN MEDS THAT WERE NOT DOCUMENTED AND THAT HE HAD ASKED TO NOT BE GIVEN. HE WAS ADAMENT THIS WAS HAPPENING SO THIS NURSE WENT BACK IN HIS EMAR AND WROTE DOWN THE ABX CHANGE THAT HE HAD 2 DAYS AGO (AT HIS REQUEST) AND THE MEDS THAT HE HAD REFUSED TO TAKE. I SPENT AT LEAST 35-45 MINUTES EXPLAINING HIS MEDS TO HIM UNTIL HE WAS SATISFIED THAT HE UNDERSTOOD WHAT HE WAS TAKING. HE HAS ASKED TO SPEAK WITH THE DOC THIS A.M. REGARDING HIS MEDS AND IF HE IS ASLEEP WHEN DOC COMES AROUND HE WOULD LIKE TO BE WOKE UP. THERE IS A NOTE ON THE DOOR OF HIS ROOM NOTING THIS.
[2023-04-19 07:21] VITALS: BP 106/70
[2023-04-19 15:56] VITALS: BP 84/58
[2023-04-19 16:54] VITALS: BP 93/61
--- NOTE | 2023-04-19 18:34 | NUR ---
SHIFT SUMMARY PT AOX4, CALLS AND MAKES HIS NEEDS KNOWN. C/O PAIN THIS SHIFT, MEDICATED PER THE EMAR. UP TO THE BR WITH A 1 ASSIST WITH THE FWW. HE HAD A BM THIS SHIFT. FRIENDS AT THE BS TODAY. CALL LIGHT WITHIN REACH, BED IN THE LOWEST POSITION. WILL REPORT TO ONCOMING NURSE.
[2023-04-19 19:13] VITALS: BP 101/65
[2023-04-20 04:03] VITALS: BP 101/66
--- NOTE | 2023-04-20 04:37 | NUR ---
SHIFT SUMMARY PT A&0 X4, COOPERATIVE WITH CARE PROVIDED. LEFT FOOT BANDAGE C/D/I. MEDICATED PER EMAR FOR FOOT PAIN. PT CURRENTLY ON 4L O2 VIA NC, WHICH IS PT BASELINE. PT IS CONTINENT AND USES URINAL. BED KEPT IN LOWEST POSITION WITH CALL LIGHT WITHIN REACH. PT CALLS APPROPRAITELY FOR NEEDS.
[2023-04-20 05:57] LABS: Bun/Creatinine Ratio 27.2 (12.0-20.0); Calcium, Blood 8.8 mg/dL (8.5-10.1); Creatinine, Blood 1.03 mg/dL (0.60-1.20); Potassium, Blood 3.6 mmol/L (3.5-5.5)
[2023-04-20 07:29] VITALS: BP 107/70
--- NOTE | 2023-04-20 17:31 | NUR ---
SHIFT SUMMARY PT AOX4, 1 ASSIST WITH THE FWW TO THE BATHROOM OR CAN USE THE URINAL INDEPENDENTLY. HE LIKES TO CONTROL HIS CARE AND THE PROCESSES, AT TIMES CAN BE RUDE TO STAFF. PT HAS BEEN MEDICATED FOR PAIN PER THE EMAR. HE IS GETTING HIS L FOOT DEBRIDE RIGHT NOW BY DR. RIVERA. DRESSING CHANGED THIS SHIFT ON THE L FOOT EARLY IN THE SHIFT. CALL LIGHT WITHIN REACH, BED IN THE LOWEST POSITION. WILL REPORT TO ONCOMING NRUSE.
[2023-04-20 18:20] VITALS: BP 110/68
[2023-04-20 21:50] VITALS: BP 126/84
[2023-04-21 02:49] VITALS: BP 100/68
--- NOTE | 2023-04-21 04:26 | NUR ---
NOC SHIFT SUMMARY: PATIENT ALERT AND COOPERATIVE THROUGHOUT SHIFT. NORCO GIVEN ONCE FOR PAIN CONTROL. PODIATRY NOTE STATED WOUND VAC POSSIBLY AND CONTINUATION OF IV ANTIBIOTICS. PT. CALLS APPROPRIATELY. BED IN LOW POSITION. CALL LIGHT WITHIN REACH.
--- NOTE | 2023-04-21 06:30 | NUR ---
PATIENT'S FRIEND, IVANNA, CALLED THIS AM. IVANNA STATES PATIENT IS TEXTING THAT HE IS BEING EVICTED TODAY FROM THE HOSPITAL. THIS RN INFORMED IVANNA THAT CASE MANAGEMENT WILL WORK ON A PLAN AND NOT EVICT THE PATIENT. IVANNA UNDERSTANDS. 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
[2023-04-21 07:48] VITALS: BP 96/62
--- NOTE | 2023-04-21 15:54 | NUR ---
WOUND CARE ORDER RECIEVED TO PLACE WOUND VAC TO L DORSAL FOOT PER DR. RIVERA. NEW PHOTO AND ASSESSMENT IN HARD CHART. WOUND CLEANSED NS. ONE PIECE BLACK FOAM APPLIED, VAC SET TO CONTINUOUS 120MMHG. PT TOLERATED WELL
[2023-04-21 16:45] VITALS: BP 113/75
--- NOTE | 2023-04-21 18:20 | NUR ---
SHIFT SUMMARY PT HAD WOUND VAC APPLIED TO L FOOT THIS AFTERNOON AND HAS HAD INCREASED PAIN TO THAT FOOT SINCE. MEDICATED WITH IBUPROFEN AND 1 HYDROCODONE WITH THE HYDROCODONE HELPING BETTER BUT DOESN'T APPEAR TO BE ENOUGH. OBTAINED AN ORDER FOR A 2ND DOSE. STATES THE PAIN EBBS AND FLOWS RANGING FROM 5-9. FRIENDLY AND CHATTY WHEN IN ROOM.
[2023-04-21 20:10] VITALS: BP 119/82
[2023-04-22 02:19] VITALS: BP 115/88
--- NOTE | 2023-04-22 06:31 | NUR ---
NOC SHIFT SUMMARY: PT HAD A PANIC ATTACK. ATIVAN 0.5 MG PO X1 GIVEN WITH GOOD EFFECT. BOWEL MOVEMENT LAST NIGHT. PT CALLS APPROPRIATELY. IBUPROFEN GIVEN FOR PAIN CONTROL. WOUND VAC IN PLACE. PT. WANTS TO TALK WITH CASE MANAGEMENT ABOUT [place] AT HIS HOUSE. PATIENT WOULD ALSO LIKE A SLEEP AID AND EYE DROPS. BED IN LOW POSITION. CALL LIGHT WITHIN REACH.
[2023-04-22 07:46] VITALS: BP 102/72
[2023-04-22 10:25] VITALS: BP 93/51
[2023-04-22 11:23] VITALS: BP 103/67
[2023-04-22 16:50] VITALS: BP 110/69
--- NOTE | 2023-04-22 17:08 | NUR ---
SHIFT SUMMARY PATIENT IS ALERT AND ORIENTED. PATIENT HAS HAD NO ACUTE EVENTS THIS SHIFT. VITAL SIGNS REVIEWED. PATIENT HAS COMPLAINED OF PAIN AND MEDICATED PER EMAR. PATIENT HAS HAD NO INSTANCES OF SOB, NAUSEA, OR VOMITTING THIS SHIFT. BED IN LOCKED AND LOWEST POSITION. CALL LIGHT IN PLACE. WILL MONITOR UNTIL SHIFT CHANGE.
[2023-04-22 19:42] VITALS: BP 104/79
[2023-04-23 03:28] VITALS: BP 119/80
--- NOTE | 2023-04-23 04:27 | NUR ---
SHIFT BILLY RADER WAS ALERT AND ORIENTED X 3-4 ON ASSESSMENT, HIS MENTATION SEEMS UNCLEAR, AND HIS ATTENTION IS ALL OVER THE PLACE. NO NEW FINDINGS ON ASSESSMENT. PT HAS NO COMPLAINTS TONIGHT. NO ACUTE EVENTS, OR NOTABLE CHANGES IN CONDITION. VSS, PATIENT ABLE TO TRANSFER WITH ASSISTANCE. WILL CONTINUE TO MONITOR PT WIDE AWAKE IN BED AT A LOW POSITION WITH THE CALL LIGHT IN REACH WHICH HE USES APPROPRIATELY.
[2023-04-23 05:13] LABS: Bun/Creatinine Ratio 23.8 (12.0-20.0); Calcium, Blood 8.9 mg/dL (8.5-10.1); Creatinine, Blood 1.05 mg/dL (0.60-1.20)
[2023-04-23 07:39] VITALS: BP 114/83
[2023-04-23] MEDS ORDERED: ALUM-MAG HYDROX30 M2 PO (11:54)
[2023-04-23] MEDS ORDERED: FAMO20 PO (11:55)
[2023-04-23] MEDS ORDERED: FURO20 PO (11:56)
[2023-04-23] MEDS ORDERED: LEVO750 PO (11:57)
[2023-04-23] MEDS ORDERED: Norco 5-325 Ta1 EACH PO (11:57)
[2023-04-23] MEDS ORDERED: Lisinopril2.5 MG PO (11:58)
[2023-04-23] MEDS ORDERED: MELATONIN5 M1 PO (11:58)
[2023-04-23] MEDS ORDERED: METO25 PO (11:59)
[2023-04-23] MEDS ORDERED: VISBIOME 112.51 EACH PO (12:02)
[2023-04-23] MEDS ORDERED: MIRALAX17 GM PO (12:02)
[2023-04-23 12:06] LABS: SARS-Cov-2 (COVID-19) PCR, MMC NEGATIVE (NEGATIVE)
[2023-04-23 15:42] VITALS: BP 91/60
--- NOTE | 2023-04-23 17:02 | NUR ---
Spiritual Care Visit. Pt. is in bed and welcomes my visit. Pt. displays evidence of wanting to share about his life. Facilitated a lengthy life review that spanned the decades. Pt. is unsettled by some of the diagnosis he was givewn. Pt. displays evidence of trust, awareness, and engagement. Prayed for the Pt. Pt. verbalized gratitude for the spiritual care visit.
[2023-04-23 19:24] VITALS: BP 100/61
--- NOTE | 2023-04-23 19:29 | NUR ---
SHIFT SUMMARY PT A&OX4. PT C/O CP DURING MORNING BREAKFAST. DR LANGLEY AWARE AND ORDERS PLACED. EKG, TROPONIN, AND CHEST X-RAY COMPLETED. PLAN WAS FOR PT TO DC TO [facility] TODAY BUT PT STATED HE DID NOT WANT TO GO TO [facility]. PLAN IS FOR POSSIBLE DC TO [facility] TOMORROW. WOUND VAC IN PLACE ON LEFT FOOT, C/D/I. MINIMAL AMOUNT OF DRAINAGE NOTED. BRITTNEY BANDAGE CHANGED. PT REFUSED TO WORK WITH OT TODAY. SPIRITUAL CARE VISITED WITH PT IN AFTERNOON. PT CALLS APPROPRIATELY. BED IN LOWEST POSITION AND CALL LIGHT IN REACH.
[2023-04-24 03:46] VITALS: BP 96/63
--- NOTE | 2023-04-24 05:13 | NUR ---
SHIFT SUMMARY PATIENT HAS HAD NO ACUTE EVENTS THIS SHIFT. VITAL SIGNS REVIEWED. PATIENT HAS NOT COMPLAINED OF PAIN, NAUSEA, SOB OR VOMITTING THIS SHIFT. PATIENT HAS HAD HIS SLEEP AID PRN AND HAS BEEN EFFECTIVE. BED IN LOCKED AND LOWEST POSITION. CALL LIGHT IN PLACE. WILL MONTIOR UNTIL SHIFT CHANGE.
[2023-04-24 05:36] LABS: Bun/Creatinine Ratio 26.7 (12.0-20.0); Calcium, Blood 8.4 mg/dL (8.5-10.1); Creatinine, Blood 0.97 mg/dL (0.60-1.20); Potassium, Blood 3.8 mmol/L (3.5-5.5)
[2023-04-24 07:35] VITALS: BP 111/69
[2023-04-24] MEDS ORDERED: HYDPAM25 PO (11:08)
--- NOTE | 2023-04-24 15:00 | NUR ---
DISCHARGE SUMMARY DISCHARGED VIA [facility]. IV REMOVED PRIOR. EDUCATION PROVIDED WHY PATIENT WASN'T ALLOWED TO KEEP IV IN PLACE AND WHY HE WASN'T RECEIVING IV ABX, ACKNOWLEDGED UNDERSTANDING. REPORT CALLED X3 TO [facility] F[facility]ILITY WITH NO ANSWER EACH TIME. WOUND VAC DRESSING IN PLACE BUT DISCONNECTED. EDUCATION PROVIDED THAT THIS WOULD BE CONTINUED AT FACILITY.
== END 2023-04-24 14:50 | DRG 264 ==
LOC: ER 19:39 → MEDS 22:11 → ENPENDDIS 04-23 11:03 → MEDS 04-24 14:50
PROVIDERS: Emergency Medicine; Family Medicine; Internal Medicine; ADMIT Internal Medicine
PROC: 0JBR0ZZ Excision of Left Foot Subcutaneous Tissue and Fascia, Open Approach (ICD-10-PCS; principal; 2023-04-20)
DX: I50.21 Acute systolic (congestive) heart failure (principal); J96.21 Acute and chronic respiratory failure with hypoxia; L03.116 Cellulitis of left lower limb; N17.9 Acute kidney failure, unspecified; I96 Gangrene, not elsewhere classified; E87.1 Hypo-osmolality and hyponatremia; Z51.5 Encounter for palliative care; E03.9 Hypothyroidism, unspecified; D64.9 Anemia, unspecified; F60.9 Personality disorder, unspecified; L97.529 Non-pressure chronic ulcer of other part of left foot with unspecified severity; L97.522 Non-pressure chronic ulcer of other part of left foot with fat layer exposed; E87.6 Hypokalemia; R53.81 Other malaise; B95.8 Unspecified staphylococcus as the cause of diseases classified elsewhere; B95.2 Enterococcus as the cause of diseases classified elsewhere; Z87.891 Personal history of nicotine dependence; Z79.52 Long term (current) use of systemic steroids; Z28.21 Immunization not carried out because of patient refusal
CPT/HCPCS: 0241U; 36415; 51798; 71045; 73630; 80048; 80053; 82803; 83735; 83880; 84439; 84443; 84481; 84484; 85025; 87070; 87075; 87077; 87186; 87205; 88305; 88312; 90471; 90714; 93005; 93010; 93925; 93971; 94760; 96374; 96375; 97110; 97161; 97164; 97530; 99285-25; A9270; C8929; J0690; J1650; J1940; J1956; J3010; J7050; J7512; Q9957; U0002

== ENCOUNTER 2023-04-25 13:36 | Inpatient (IN) | payer MEDICARE, MEDICAID ==
[2023-04-25] VITALS (17 sets, daily range): BP systolic 85–111; BP diastolic 55–92
[~2023-04-25] VITALS: Ht 172.7 cm; Wt 91.2 kg
[~2023-04-25 13:36] MED LIST changes: +ALUM-MAG HYDROX30 M2 PO; +ASCO500 PO; +EUTHYROX125 MCG PO; +FAMO20 PO; +FURO20 PO; +HYDPAM25 PO; +IBUP800; +LEVO750 PO; +Lisinopril2.5 MG PO; +MAGCHL64ER; +MELATONIN5 M1 PO; +METO25 PO; +MIRALAX17 GM PO; +Norco 5-325 Ta1 EACH PO; +POTA10T PO; +VISBIOME 112.51 EACH PO; +VITAMIN B125000 MC1 IM
[2023-04-25 13:57] LABS: BASOPHILS ABSOLUTE AUTO 0.02 K/mm3 (0.00-0.23); BASOPHILS PERCENT AUTO 0 % (0-2); EOSINOPHILS ABSOLUTE AUTO 0.05 K/mm3 (0.00-0.68); EOSINOPHILS PERCENT AUTO 1 % (0-6); Hemoglobin 10.7 g/dL (13.5-17.5); IMMATURE GRAN ABSOLUTE AUTO 0.12 K/mm3 (0.00-0.10); IMMATURE GRAN PERCENT AUTO 1 % (0-1); LYMPHOCYTES ABSOLUTE AUTO 0.74 K/mm3 (0.84-5.20); LYMPHOCYTES PERCENT AUTO 8 % (21-46); MONOCYTES ABSOLUTE AUTO 0.91 K/mm3 (0.16-1.47); MONOCYTES PERCENT AUTO 10 % (4-13); Mean Corpuscular HGB 29.1 pg (26.0-34.0); Mean Corpuscular HGB Conc 32.4 g/dL (31.5-36.5); Mean Corpuscular Volume 90 fL (80-100); Mean Platelet Volume 8.9 fL (9.1-12.4); NEUTROPHILS ABSOLUTE AUTO 7.04 K/mm3 (1.96-9.15); NEUTROPHILS PERCENT AUTO 79 % (41-73); NRBC ABSOLUTE 0.02 K/mm3 (0.00-0.02); NRBC Auto 0.2 /100 WBC (0.0-0.2); Platelet Count 201 K/mm3 (150-400); RDW Coefficient Variation 15.9 % (11.7-14.2); RDW Standard Deviation 52.2 fL (35.1-46.3); Red Blood Cell Count 3.68 M/mm3 (4.30-5.90); White Blood Cell Count 8.88 K/mm3 (4.00-11.30)
[2023-04-25 14:09] LABS: Albumin, Blood 2.8 g/dL (3.4-5.0); Bilirubin, Total 0.2 mg/dL (0.1-1.0); Bun/Creatinine Ratio 20.5 (12.0-20.0); Calcium, Blood 8.1 mg/dL (8.5-10.1); Creatinine, Blood 1.12 mg/dL (0.60-1.20); Globulin, Blood 2.9 g/dL (2.2-4.0); Potassium, Blood 4.1 mmol/L (3.5-5.5); Total Protein, Blood 5.7 g/dL (6.4-8.2)
--- NOTE | 2023-04-25 17:22 | NUR ---
ARRIVAL TO ICU PT ARRIVES TO ICU FOR HYPOTENSION AT 1632. PT D/C'D FROM [facility] ON 04/24 FOR LEFT FOOT ULCERATION/DEBRIDEMENT. WAS D/C'D TO SNF. RETURNED TO ER FOR LIGHTHEADNESS. PT STATES THIS IS BETTER. ARRIVES c LEVO INFUSING VIA LFA PIV AT 3 MCG/MIN, PLACED ON STANDBY SHORTLY AFTER ARRIVAL, MAP CURRENTLY >65. PT A&OX 4, RAPID SPEECH. FOLLOWS COMMANDS. SR c PVCS ON MONITOR, RATE 80'S. HOME O2, ON 2L VIA NC, >95%. LUNGS CLEAR. PT P/W/D. ABD ROUND, SOFT, NON TENDER. BT X 4. ULCERATION TO LEFT FOOT, PHOTOS IN CHARGE, [id number], BLEEDING. WOUND VAC BEING PLACED. WILL CONTINUE TO MONITOR UNTIL REPORT TO ONCOMING NURSE.
--- NOTE | 2023-04-25 22:22 | NUR ---
ASSUMED CARE AT 1900 PT LAYING IN BED WATCHING TV ON HIS PHONE AT SHIFT CHANGE. HE IS A/O X4 AND VERY TALKATIVE; CHALLENGING TO FOLLOW HIS CONVERSATION AT TIMES BUT HAS BEEN POLITE TO THIS RN; PRESSURED SPEECH NOTED; HE MAKES HIS NEEDS KNONW. PT RATING 8/10 SHARP THROBBING PAIN TO HIS LT FOOT; CALL MADE TO HOSPITALIST FOR PO PAIN MEDS THAT PT STATES HE WAS TAKING PREVIOUSLY FOR PAIN; NEW ORDERS PROVIDED FOR NORCO; AFTER PRN PAIN IS NOW A 5/10. SPO2 >96% ON 2L NC. HR 80'S. SBP 100-120'S; LEVOPHED OFF. USING URINAL INDEPENDENTLY. WOUND VAC NOTED TO LT FOOT WOUND; DRESSING C/D/I WITH SMALL AMOUNT OF RED DRAINAGE INTO WOUND VAC. SEE SHIFT ASSESSMENT FOR FULL ASSESSMENT.
[2023-04-26] VITALS (23 sets, daily range): BP systolic 86–136; BP diastolic 52–86
[2023-04-26 03:31] LABS: BASOPHILS ABSOLUTE AUTO 0.01 K/mm3 (0.00-0.23); BASOPHILS PERCENT AUTO 0 % (0-2); EOSINOPHILS ABSOLUTE AUTO 0.01 K/mm3 (0.00-0.68); EOSINOPHILS PERCENT AUTO 0 % (0-6); Hematocrit 31.3 % (37.0-53.0); Hemoglobin 9.9 g/dL (13.5-17.5); IMMATURE GRAN ABSOLUTE AUTO 0.06 K/mm3 (0.00-0.10); IMMATURE GRAN PERCENT AUTO 1 % (0-1); LYMPHOCYTES PERCENT AUTO 8 % (21-46); MONOCYTES ABSOLUTE AUTO 0.54 K/mm3 (0.16-1.47); MONOCYTES PERCENT AUTO 8 % (4-13); Mean Corpuscular HGB 28.6 pg (26.0-34.0); Mean Corpuscular HGB Conc 31.6 g/dL (31.5-36.5); Mean Corpuscular Volume 91 fL (80-100); Mean Platelet Volume 8.8 fL (9.1-12.4); NEUTROPHILS ABSOLUTE AUTO 5.93 K/mm3 (1.96-9.15); NEUTROPHILS PERCENT AUTO 83 % (41-73); Platelet Count 182 K/mm3 (150-400); RDW Coefficient Variation 15.7 % (11.7-14.2); RDW Standard Deviation 51.8 fL (35.1-46.3); Red Blood Cell Count 3.46 M/mm3 (4.30-5.90); White Blood Cell Count 7.15 K/mm3 (4.00-11.30)
[2023-04-26 03:48] LABS: Bun/Creatinine Ratio 19.7 (12.0-20.0); Creatinine, Blood 0.96 mg/dL (0.60-1.20); Potassium, Blood 4.3 mmol/L (3.5-5.5)
--- NOTE | 2023-04-26 06:32 | NUR ---
END OF SHIFT SUMMARY NO ACUTE EVENTS OVERNIGHT. PT WAS ABLE TO REST COMFORTABLY AFTER PRN NORCO GIVEN. HE IS DISORIENTED WHEN HE FIRST WAKES UP FROM SLEEPING BUT CAN BE REORIENTED EASILY; YELLS OUT WHEN HE NEEDS HELP. SPO2 >92% ON 2L NC. HR 70-90'S. SBP 80-110'S WITH MAP >65 CONTINOUSLY. TOLERATING PO INTAKE WELL. USES URINAL WITH MINIMAL ASSISTANCE FOR CORD MANAGEMENT. WOUND VAC IN PLACE ALL NIGHT; MINIMAL OUTPUT INTO CANISTER. WILL REPORT TO AM RN WHEN AVAILABLE.
--- NOTE | 2023-04-26 07:56 | NUR ---
ASSUMED CARE REPORT FROM EVELYN DAVIS AT 0700. PT RESTING IN BED. WAKES c VERBAL STIMULI. MED c TELE STATUS. A&OX 4. FOLLOWS COMMANDS. REPORTS POOR NIGHT OF SLEEP D/T CORDS. PT STATES PAIN TO LEFT FOOT 08/10. WOUND VAC IN PLACE c 120 MMHG SUCTION, SCANT RED DRAINING IN TUBING. LUNGS CLEAR. HOME O2 AT 4L. SR ON MONITOR c MULTIPLE PVC'S. BP STABLE, MAP>65. PIV X 2. PT c RAMBLING, PRESSURED SPEECH BUT COOPERATIVE c CARE. REQUESTS TO HAVE DIFFERENT HOSPITALIST, CALL MADE BY AIR CONDITIONING INSULATION INSTALLER. WILL CONTINUE TO MONITOR.
--- NOTE | 2023-04-26 10:48 | NUR ---
UPDATE PT CONTINUES TO HAVE PRESSURED, PARANOID SPEECH. REFUSING TO LET DR LANGLEY EVAULATE HIM, REQUESTS ANOTHER PROVIDER. DR SOTELO TO ROOM. AFTER DR SOTELO LEAVES, PT CONTINUES TO DISTRUST AND SPEAK NEGATIVELY ABOUT DR SOTELO AND ALL MEDICAL PROVIDERS HE HAS ENCOUNTERED. ATTEMPTED TO REASSURE, CHALLENGING.
--- NOTE | 2023-04-26 17:33 | NUR ---
SHIFT SUMMARY NO ACUTE CHANGES THIS SHIFT. PT CONTINUE TO HAVE PRESSURED, PARANOID SPEECH. DOES COOPERATE c CARE BUT CAN BE IRRITABLE. A&OX 3. FOLLOWS COMMANDS. LUNGS CLEAR. HOME O2 AT 4L VIA NC. SR c MULTIPLE PVCS ON MONITOR. PT REFUSED TO TAKE LISINOPRIL BECAUSE HE "NEEDS MY BLOOD PRESSURE TO BE 140/80 OR I FEEL LIKE CRAP." EDUCATED PT REGARDING HF AND HTN, PT AGREED TO TAKE METOPROLOL BUT REFUSED LISINOPRIL. ALSO REFUSED PROBIOTIC D/T ABD BLOATING. ABD ROUND, SOFT, NON TENDER. BT X 4. PT STANDS AT BEDSIDE TO USE URINAL, STANDBY ASSIST, PT UNSTEADY. WOUND VAC REMAINS IN PLACE TO LEFT FOOT. PT DENIES PAIN TO FOOT THIS SHIFT. DOES C/O ANXIETY AND DEPRESSION. MEDICATED c ATARAX c MINIMAL REPORTED EFFECT. WILL CONTINUE TO MONITOR UNTIL REPORT TO ONCOMING NURSE.
--- NOTE | 2023-04-26 21:00 | NUR ---
ASSUMED CARE PT IS A&O X3; SPO2 >92% ON 4LNC; MAP >65; HR IN 80-90'S W/ FREQUENT PVC'S. PT DENIES CP, SOB, OR NAUSEA. DENIES PAIN. PT IS PLEASANT AND COOPERATIVE W/ CARE.
[2023-04-27] VITALS (16 sets, daily range): BP systolic 93–136; BP diastolic 66–93
--- NOTE | 2023-04-27 05:40 | NUR ---
SHIFT SUMMARY PT SLEPT/RESTED QUIETLY T/O NIGHT. SPO2 >92% ON 4LNC; MAP >65; RATE IN THE 80'S W/ PVC'S. NO ACUTE EVENTS OVERNIGHT. DRESSING/WOUNDVAC REMAINS IN PLACE. PT UP TO USE URINAL W/ SBA; NEURO APPEARS TO REMAIN UNCHANGED.
--- NOTE | 2023-04-27 09:07 | NUR ---
CARE OF PT ASSUMED AT 0700. PT AWAKE AND ALERT, OX3. PT C/O ANXIETY. PT HAS PRESSURED SPEECH. PT HAS SOME PARANOID THOUGHTS ABOUT MEDICAL ESTABLISHMENTS AND PHYSICIANS "MAKING ME WORSE/SICKER". PT STATES HE HAD TO LEAVE THE STATE TO HEAL. PT BECAME UPSET WHEN CARDIAC MEDS REVIEWED. PT STATES HE DOES NOT HAVE HEART PROBLEMS AND THAT THE [facility] MADE IT UP AND CAUSED MORE PROBLEMS. PT REQUEST THAT "HEART ISSUES" BE REMOVED FROM HIS RECORD. HEART RATE IRREGULAR THIS AM AND WAS DIFFICULT TO DIAGNOSIS THERE WAS INCREASED ARTIFACT D/T PT MOVEMENT. EKG TAKEN TO R/O AFIB. EKG READS SINUS TACH W PAC'S. PT C/O PAIN 5/10 TO RIGHT FOOT, DENIED ALL OTHER PAIN.
--- NOTE | 2023-04-27 10:16 | NUR ---
ORTHOSTATIC PRESSURES TAKEN, BP/HR STABLE WHILE STANDING. PT DID C/O "FEELING WORSE" WHILE STANDING. ATRIO ON PHONE WITH PATIENT PRIOR TO ORTHOSTATIC PRESSURES, ATTEMPTING TO SCHEDULE AN APPOINTMENT TO ESTABLISH NEW PCP WITH PATIENT. PT DECLINED APPOINTMENT STATING HE NEEDED TO KNOW MORE INFORMATION ABOUT THE PHYSICIAN INCLUDING, SEX, RACE/NATIONALITY, YEARS TRAINING/SCHOOLING.
--- NOTE | 2023-04-27 13:05 | NUR ---
BEDJOSETTE OFFERED, PT DECLINED FOR NOW. PT C/O ABD BLOATING "CAUSED FROM THOSE PROBIOTIC PILLS". PT DECLINED SITTING UP IN CHAIR, SIMETHICONE ORDERED. PT STATES HE NEEDS SOMETHING FOR DEPRESSION, "I AM SEVERELY DEPRESSED AND I NEED SOMETHING NOW". DR RUST NOTIFIED.
--- NOTE | 2023-04-27 17:33 | NUR ---
DR RUST IN TO SEE PT. PSYCH CONSULT PLACED FOR DEPRESSION/ANXIETY. PT STATED HE LIKED HOW THAT LAST DOCTOR EXPLAINED MORE TO HIM BUT HE STILL THINKS THE OTHER HOSPITAL "GOT ME SICK". PT'S SPEECH IS PRESSURED, PT DOES NOT ALLOW FOR RECIPICAL CONVERSATION, SOME FLIGHT OF IDEAS NOTED WITH FREQUENT CHANGES IN SUBJECT MATTER. PT HAS HAD MINIMAL PAIN TO LEFT FOOT TODAY. OOB TO TOILET WITH WALKER AND STANDBY ASSIST.
[2023-04-28 02:22] VITALS: BP 117/55
--- NOTE | 2023-04-28 03:03 | NUR ---
PATIENT TOLD THIS RN THAT HIS PAIN STARTS TO INCRESE AT 3 HOURS FOLLOWING HIS Q4PRN PAIN MED. PATIENT SAID "IF HE IS GOING TO IN THE HOSPITAL THEN I SHOULDNT BE IN PAIN". TALKED WITH THE PATIENT THAT HE IS IN THE HOSPITAL TO BE TREATED AND ASK WHY HE FELT LIKE HE IS IN THE HOSPITAL TO , HE RESPONDED "WELL THATS WHAT THEY ARE SAYING, THIS OTHER DOCTOR THAT I AM SEEING".
--- NOTE | 2023-04-28 04:30 | NUR ---
SHIFT SUMMARY PT A&O TO SELF, PLACE, AND SITUATION. PT EXHIBITS ANXIETY, PARANOIA, AND HAS SCATTERED THOUGHTS WHEN CONVERSING. DISCUSSES PAST SITUATIONS IN RESPONSE TO QUESTIONS THAT ARE NOT APPROPRIATE RESPONSES FOR THE CURRENT QUESTIONS. PT QUESTIONS ADMINISTRATION OF MEDICATIONS PRIOR TO ADMINISTRATION AND VOICES CONCERN REGARDING "1/4 OF MY HEART WORKING" IN REGARDS TO HIS EJECTION FRACTION. FURTHER PT EDUCATION WOULD BE BENEFICIAL TO PT UNDERSTANDING OF HEART FAILURE AND ITS LIMITATIONS. PREVENTATIVE MEPILEX APPLIED TO HEELS, RIGHT HEEL MEPILEX REMOVED BY PT DURING SHIFT. WOUND VAC APPLIED TO LEFT FOOT AND IS WORKING PROPERLY. VSS,PT HYPOTENSIVE AND COMPLAINS OF SOB DURING AMBULATION. PT ON 4L OF O2 AND MAINTAINING O2 SATS ABOVE 90%. NO ACUTE EVENTS OVERNIGHT, P LEFT IN A POSITION OF SAFETY WITH APPROPRIATE FALL PRECAUTIONS IN PLACE AND CALL LIGHT IN REACH.
[2023-04-28 07:44] VITALS: BP 134/69
[2023-04-28 08:58] LABS: Hematocrit 32.3 % (37.0-53.0); Hemoglobin 9.8 g/dL (13.5-17.5); Mean Corpuscular HGB 28.2 pg (26.0-34.0); Mean Corpuscular HGB Conc 30.3 g/dL (31.5-36.5); Mean Corpuscular Volume 93 fL (80-100); Mean Platelet Volume 8.6 fL (9.1-12.4); Platelet Count 172 K/mm3 (150-400); RDW Standard Deviation 54.3 fL (35.1-46.3); Red Blood Cell Count 3.47 M/mm3 (4.30-5.90); White Blood Cell Count 8.06 K/mm3 (4.00-11.30)
[2023-04-28 09:11] LABS: Bun/Creatinine Ratio 16.2 (12.0-20.0); Calcium, Blood 8.4 mg/dL (8.5-10.1); Creatinine, Blood 0.87 mg/dL (0.60-1.20); Potassium, Blood 4.5 mmol/L (3.5-5.5)
[2023-04-28 12:36] VITALS: BP 108/83
[2023-04-28 16:33] VITALS: BP 96/80
--- NOTE | 2023-04-28 18:34 | NUR ---
PT IS A/OX4. PLEASANT AND COOPERATIVE, THE PT IS UP TO THE SIDE OF THE BED STANDING WITH 1--2 PERSON ASSIST. THE PT IS ON 4 L/MIN O2 VIA NC. PT REQUESTED A NON REBREATHER FOR ANXIETY PLACED AT THE BEDSIDE. PT WAS MEDICATED FOR ANXIETY X1 TODAY. PT WAS MEDICATED FOR PAIN X3 SO FAR THIS SHIFT. THE PT HAD VISITORS TODAY. CALL LIGHT IN REACH. BED IN TH LOW POSITION.
[2023-04-28 19:46] VITALS: BP 119/91
--- NOTE | 2023-04-29 04:17 | NUR ---
SHIFT SUMMARY PT A&O X4, CALM AND COOPERATIVE WITH CARE. EXPRESSES SOME CONCERN AND ANXIETY SURROUNDING HIS DX OF HF. CURRENTLY ON 4L O2 VIA NC, SATS >90%. TELEMETRY: SR @ 85. WOUND VAC TO LEFT FOOT DRAINING SCANT AMOUNT OF RED FLUID. PT CONTINENT T/O THE NIGHT USING URINAL AT BEDSIDE. PT ABLE TO MAKE NEEDS KNOWN AND CALLS APPROPRAITELY. WILL CONTINUE TO MONITOR UNTIL END OF SHIFT.
[2023-04-29 05:13] VITALS: BP 85/51
--- NOTE | 2023-04-29 05:49 | NUR ---
REFUSAL TOOK PT VITAL SIGNS X2 BY LICENSED MORTICIAN. I CAME TO ASSIST AFTER LICENSED MORTICIAN NOT ABLE TO GET AN ACCURATE READING. PT MVING AND TALKING. PT REFUSED TO DO ANOTHER SET OR TAKE ORTHOSTATIC VITALS.
--- NOTE | 2023-04-29 05:55 | NUR ---
SHIFT SUMMARY PT A&O X3, COOPERATIVE WITH CARE. TEMPERATURES RECHECKED WITH ORAL THEMOMETER. PT INCONTINENT, ATTENDS CHANGED PRN. PT WEAK AND NOT OOB THIS SHIFT. DRESSING TO LEFT ELBOW AND LEFT HIP INCISION C/D/I. PT COMPLAINED OF CHEST/ABD PAIN THIS AM, DR NOTIFIED, ORDERS PLACED. DR WILL LOOK OVER CHART AND PLACE FURTHER ORDERS IF NEEDED. BED KEPT IN LOWEST POSITION WITH CALL LIGHT WITHIN REACH. WILL CONTINUE TO MONITOR UNTIL END OF SHIFT.
[2023-04-29 07:30] VITALS: BP 116/102
[2023-04-29 16:57] VITALS: BP 103/90
--- NOTE | 2023-04-29 17:58 | NUR ---
SHIFT SUMMARY- PT IS ALERT AND COOPERATIVE. HE HAD CONCRENS ABOUT HIS MEDICATIONS, SPOKE WITH PROVIDER SEVERAL TIMES ABOUT THIS, SHE ADDED MIDODRINE FOR HIS BLOOD PRESSURE. ATTEMPTED TO DO A WOUND VAC CHANGE, PT STATED THAT IF HE FELT ANYTHING HE WOULD NOT ALLOW US TO PROCED WITH THE DRESSING CHANGE. I DISCUSSED WITH THE PATIENT THAT IT MAY NOT BE POSSIBLE TO MAKE IT SO THAT HE CANNOT FEEL ANYTHING BUT WE CAN DO OUR BEST TO CONTROL THE PAIN AND WE CAN GIVE HIM MEDICATION PRIOR TO BEGINNING. HE DECLINED DRESSING CHANGE AT THIS TIME. ORDERED WOUND CONSULTATION. PSYCH SAW THE PATIENT THIS SHIFT. HIS BED IS IN THE LOW POSITON AND CALL LIGHT IS WITHIN REACH.
[2023-04-29 19:47] VITALS: BP 111/80
--- NOTE | 2023-04-30 03:53 | NUR ---
SHIFT SUMMARY PT A&O X3, WITHDRAWN AND DOWN THIS SHIFT. PT HAS RAPID SPEECH AND TALKS A LOT. CURRENTLY ON TELE: SR BBB @ 89. 4L O2 VIA NC, SATS ABOVE 90%. WOUND VAC TO LEFT FOOT WITH SMALL AMOUNT OF RED FLUIDS. PT WILL NEED TO BE MEDICATED PRIOR TO DRESSING CHANGE. PT CALLS APPROPRIATELY FOR NEEDS. BED IN LOWEST POSITION WITH CALL LIGHT WITHIN REACH. WILL CONTINUE TO MONITOR UNTIL END OF SHIFT.
[2023-04-30 04:53] VITALS: BP 103/56
[2023-04-30 05:28] VITALS: BP 116/60
[2023-04-30 06:31] LABS: Hematocrit 30.5 % (37.0-53.0); Hemoglobin 9.3 g/dL (13.5-17.5); Mean Corpuscular HGB 28.3 pg (26.0-34.0); Mean Corpuscular HGB Conc 30.5 g/dL (31.5-36.5); Mean Corpuscular Volume 93 fL (80-100); Mean Platelet Volume 8.7 fL (9.1-12.4); Platelet Count 177 K/mm3 (150-400); RDW Coefficient Variation 15.9 % (11.7-14.2); RDW Standard Deviation 53.8 fL (35.1-46.3); Red Blood Cell Count 3.29 M/mm3 (4.30-5.90); White Blood Cell Count 8.01 K/mm3 (4.00-11.30)
[2023-04-30 06:58] LABS: Bun/Creatinine Ratio 18.2 (12.0-20.0); Calcium, Blood 8.3 mg/dL (8.5-10.1); Creatinine, Blood 0.88 mg/dL (0.60-1.20); Potassium, Blood 3.9 mmol/L (3.5-5.5)
[2023-04-30 07:44] VITALS: BP 90/54
--- NOTE | 2023-04-30 13:33 | NUR ---
WOUND CARE ON ASSESSMENT L DORSAL FOOT WOUND IS FLUSH WITH PERIWOUND. NEW EPITHELIAL TISSUE NOTED. WOUND BED 50% SLOUGH. WOUND VAC IS NO LONGER APPROPRITAE. VERBAL ORDER RECIEVED FROM DR. RUST TO [place] WOUND VAC. CLEANSED WITH NS. CALCIUM ALGINATE TO WOUND BED COVERED BY EXU-DRY, ROLLED GAUZE, BRITTNEY. THIS WILL NEED TO BE CHANGED MON, WED, FRI, PRN > 25% STRIKETHROUGH DRAINAGE.
[2023-04-30 14:00] VITALS: BP 94/68
--- NOTE | 2023-04-30 16:36 | NUR ---
SHIFT SUMMARY MR PICKARD IS ORIENTATED TO QUESTIONS. HE IS VERY TALKATIVE AND VOICES CONCERNS OVER BEING THROWN OUT ON THE STREET AND SAID HE IS NOT ABLE TO TAKE CARE OF HIMSELF, OVER LACK OF SUPPORT ONCE HE IS DISCHARGED AND FEARS OF WHAT WILL HAPPEN TO HIM. HIS FRIEND ROSEMARIE IS VISITING HIM TODAY AND PT RECEIVED ASSISTANCE TO GET [facility] APPLICATION STARTED. WOUND VAC WAS REMOVED BY SWITCHBOARD WIRE WORKER HELPER AND DRESSING IS C,D,I. MR PICKARD REFUSED TO GET UP OUT OF BED HE WAS CONCERNED THAT WHEN HE DOES ANY EXERTION HE BECOMES BREATHLESS. DURING AN EPISODE OF COUGHING PULSE OX WAS IN THE 90S ON BASELINE 4L NC OXYGEN AND HE WAS ABLE TO CONTINUE TO TALK THROUGHOUT COUGHING EPISODE. HE DID C/O NAUSEA EALIER THIS AM WHICH ABATED AFTER PEPPERMINT TEA. BED LOW, CALL LIGHT IN REACH, BED ALARM IN USE.
[2023-04-30 17:30] VITALS: BP 101/67
[2023-04-30 19:53] VITALS: BP 108/70
[2023-05-01] VITALS (9 sets, daily range): BP systolic 87–119; BP diastolic 43–94
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
--- NOTE | 2023-05-01 14:41 | NUR ---
RN NOTE MR PICKARD C/O SOME DIFFICULTY URINATING, SAID THAT HE FEELS LIKE HE CAN NOT EMPTY HIS BLADDER. BLADDER SCAN DONE AT VOLUME [id number]. HE C/O SOME MILD DYSURIA FOR SOME OF THE TIME. NOTED SOME EDEMA TO BLE ARMS AND PT C/O SCROTAL EDEMA. TELEMETRY CALLED WITH SVT 150 X [address] SHIFT[address] RUST WAS CALLED AND NOTIFIED OF THE ABOVE AND PT CONCERNS. NO NEW ACTIONS/ORDERS AT THIS TIME.
--- NOTE | 2023-05-01 16:14 | NUR ---
SHIFT SUMMARY MR PICKARD HAS HAD MILD LEFT FOOT PAIN TODAY AND DENIED THE NEED FOR PAIN MEDICATIONS. LEFT FOOT DRESING C,D,I, LEFT UNDISTURBED. MR NOLAN C/O DRIBBLING UOP AND FEELING LIKE HE CAN NOT EMPTY HIS BLADDER, BLADDER SCAN DONE. MILD EDEMA BLE AND PT C/O ARMS AND SCROTAL SWELLING. AFTER BP CHECK LASIX 20MG PO GIVEN. ON TELEMETRY SR WITH PVCS WITH ONE RUN OF SVT TO 150 X 10 SECONDS. MR NOLAN DID WORK WITH PHYSICAL THERAPY AND SAT IN THE CHAIR FOR A BRIEF TIME DURING P.T. SESSION BUT OTHER THAN THAT HE HAS DECLINED TO STAND OR GET OUT OF BED WITH NURSING STAFF. HE WAS EDUCATED ON BENEFTS OF PARTICIPATING IN STRENGTHENING EXERCISES BUT HE VOICED FEARS OVER POSSIBILITY OF PASSING OUT IF HE STANDS UP. HE WAS REMINDED THAT THE HOSPITAL SETTING WOULD BE A GOOD PLACE TO STAND AND AMBULATE WITH STAFF SUPPORT. HE HAS BEEN OFFERED ASSISTANCE WITH HYGEINE/BATH BUT HAS DECLINED. HE HAS NOT HAD COUGHING EPISODES OR EPISODES OF SHORTNESS OF BREATH THIS SHIFT. HE HAS BEEN VERY TALKATIVE AND HAS SPENT A LOT OF THE DAY TALKING ON HIS TELEPHONE. BED LW, CALL LIGHT IN REACH. BED ALARM ON.
[2023-05-02] VITALS (12 sets, daily range): BP systolic 93–130; BP diastolic 53–95
[2023-05-02 00:59] LABS: Source, Urine Clean Catch
[2023-05-02 01:05] LABS: Bilirubin, Urine Neg (Neg); Blood, Urine Neg (Neg); Glucose Qualitative, Urine Neg (Neg); Ketones, Urine Neg (Neg); Leukocyte Esterase, Urine Neg (Neg); Nitrite, Urine Neg (Neg); Protein, Urine Neg (Neg); Specific Gravity, Urine 1.015 (1.003-1.022); Urobilinogen, Urine NORM (Normal)
[2023-05-02 01:24] LABS: Appearance, Urine Clear (Clear); Color, Urine Yellow (P-Yellow)
--- NOTE | 2023-05-02 05:38 | NUR ---
SHIFT SUMMARY: PT IS ADMITTED FOR HYPOTENSION AND IS A FULL CODE. IS ALERT AND ABLE TO MAKE NEEDS KNOWN. ADLs HAVE BEEN 1P STBY WHEN STANDING AT BEDSIDE. OTHERWISE HAS BEEN INDEPENDENT WHILE IN BED. HAD COMPLAINT OF PAINFUL URINATION WITH FREQUENCY AND URGENCY. REQUESTED UA FROM . UA SUBMITTED AND RESULTS IN CHART. IV TO RIGHT FOREARM IS PATENT WITH DRESSING THAT IS CDI. MELANIE REPORTS SINUS @ 75.
[2023-05-02 06:51] LABS: Albumin, Blood 2.6 g/dL (3.4-5.0); Anion Gap 1 mmol/L (6-16); Blood Urea Nitrogen 20 mg/dL (8-24); Bun/Creatinine Ratio 24.5 (12.0-20.0); CO2, Blood 38 mmol/L (21-32); Calcium, Blood 8.4 mg/dL (8.5-10.1); Chloride, Blood 99 mmol/L (98-108); Creatinine, Blood 0.82 mg/dL (0.60-1.20); Glomerular Filtration Rate 92 (60-); Glucose, Blood 101 mg/dL (70-99); Phosphorus, Blood 4.1 mg/dL (2.5-4.9); Potassium, Blood 3.9 mmol/L (3.5-5.5); Sodium, Blood 138 mmol/L (136-145)
--- NOTE | 2023-05-02 13:46 | NUR ---
PATIENT C/O FACIAL NUMBNESS ON LIPS AND CHEEKS. PATIENT SAYS IT HAS RESOLVED SOME AT THIS POINT BUT THERE IS NUMBNESS ON HIS LEFT CHEEK NOW. DR. RUST NOTIFIED OF THIS BY PHONE AT 13:47. NO ORDERS GIVEN
--- NOTE | 2023-05-02 19:28 | NUR ---
PATIENT IS ALERT AND ORIENTED. ON 4L O2 VIA NC WHICH IS BASELINE. ON TELEMETRY, HE WAS TACHYCARDIC A COUPLE TIMES TODAY WITH THE HR REACHING 150 BPM. MEDS GIVEN PER EMAR. THE PATIENT'S BP REMAINED STABLE TODAY. THE PATIENT C/O LOW URINE OUTPUT, HE HAS LOW INTAKE SO HE WAS ENOURAGED TO DRINK WATER THIS SHIFT INSTEAD OF PEPSI. LEFT FOOD WOUND WAS CLEANED AND DRESSED. WILL CONTINUE TO MONITOR
[2023-05-03] VITALS (7 sets, daily range): BP systolic 94–121; BP diastolic 53–76
--- NOTE | 2023-05-03 04:20 | NUR ---
1900: ASSUMED CARE OF PT, REPORT RECEIVED FROM DAY SHIFT RN. PT IS LAYING IN BED ON HIS BACK WITH HOB ELEVATED. A/OX4, FLIGHT OF THOUGHTS. USES CALL LIGHT, KEPT WITHIN REACH. OXYGEN AT 4LPM NC, HOME DOSE. PT STOOD AT THE SIDE OF THE BED TO VOID MULTIPLE TIMES DURING THE NIGHT WITHOUT ISSUE. SLEPT WELL. PT REFUSED LISINOPRIL AT THE START OF SHIFT R/T BLOOD PRESSURE READING. TELEMETRY MAINTAINED. SEE EMR FOR ROS. SAFETY MEASURES TAKEN WITH CALL LIGHT AND BELONGINGS. PT WAS APPROPRIATE WITH GETTING UP WITH ASSIST. NEEDS ADDRESSED THROUGHOUT SHIFT.
--- NOTE | 2023-05-03 09:00 | NUR ---
PT PLEASANT COOP A/O X3, SOME PARANOID STATEMENTS. FLIGHTS OF IDEAS. DENIES PAIN AT THIS TIME. H/R REG, NO MURMUR NOTED. PER TELE NSR AT 89 WITH PVC'S. L LEG EDEMA 1+, SOME SCROTAL EDEMA. LUNGS CLEAR UPPER, DIM BASES. ON R/A. RESP EASY, UNLABORED. B/T X4 LAST BM YEST. VOIDS STANDING AT BEDSIDE URINAL. 1 ASST FWW.. BED INLOW POSITION, CALL LITE IN REACH, CALLS APPROP
--- NOTE | 2023-05-03 18:39 | NUR ---
PT PLEASANT TODAY. CONTINUES TO EXIBIT SOME PARANOID STATEMENTS. MUCH FLIGHS OF IDEAS. SOME EDEMA L LEG AND SCROTUM. WAS GETTING PRETTY ANXIOUS THIS AFT. SEROQUEL GIVEN THIS AFTERNOON AND PT CALMER. NO OTHER NEW CONCERNS NOTED.
--- NOTE | 2023-05-04 04:05 | NUR ---
REPORT RECEIVED VERIFIED. A/O X3 PT HAS BEEN VERY PLEASENT AND COOPREATIVE NO PARANOIA NOTED NO DISTRESS, PT HAS CALLED APPROPRIATLY MAKES NEEDS KNOWN. MY ASSESSMENT WAS DONE AND DOCUMENTED LEFT FOOT WOUND COVERED WITH BRITTNEY BANDAGE, CALL LIGHT WITHIN REACH. PT WITHIN CONSTANT VIEW.
[2023-05-04 05:16] VITALS: BP 87/53
[2023-05-04 05:50] LABS: BASOPHILS PERCENT AUTO 0 % (0-2); EOSINOPHILS ABSOLUTE AUTO 0.03 K/mm3 (0.00-0.68); EOSINOPHILS PERCENT AUTO 0 % (0-6); Hematocrit 30.9 % (37.0-53.0); Hemoglobin 9.6 g/dL (13.5-17.5); IMMATURE GRAN ABSOLUTE AUTO 0.05 K/mm3 (0.00-0.10); IMMATURE GRAN PERCENT AUTO 1 % (0-1); LYMPHOCYTES ABSOLUTE AUTO 0.77 K/mm3 (0.84-5.20); LYMPHOCYTES PERCENT AUTO 12 % (21-46); MONOCYTES ABSOLUTE AUTO 0.53 K/mm3 (0.16-1.47); MONOCYTES PERCENT AUTO 8 % (4-13); Mean Corpuscular HGB 28.9 pg (26.0-34.0); Mean Corpuscular HGB Conc 31.1 g/dL (31.5-36.5); Mean Corpuscular Volume 93 fL (80-100); Mean Platelet Volume 8.9 fL (9.1-12.4); NEUTROPHILS ABSOLUTE AUTO 5.34 K/mm3 (1.96-9.15); NEUTROPHILS PERCENT AUTO 80 % (41-73); Platelet Count 171 K/mm3 (150-400); RDW Coefficient Variation 15.9 % (11.7-14.2); RDW Standard Deviation 54.4 fL (35.1-46.3); Red Blood Cell Count 3.32 M/mm3 (4.30-5.90); White Blood Cell Count 6.72 K/mm3 (4.00-11.30)
[2023-05-04 06:10] LABS: Bun/Creatinine Ratio 25.7 (12.0-20.0); Calcium, Blood 8.7 mg/dL (8.5-10.1); Creatinine, Blood 0.82 mg/dL (0.60-1.20); Potassium, Blood 4.2 mmol/L (3.5-5.5)
[2023-05-04 07:13] VITALS: BP 101/68
--- NOTE | 2023-05-04 16:30 | NUR ---
PT AOX4 AND COOEPERATIVE OF CARE. PT KEEPS STATING HE IS NOT GETTING THE MEDICAL CARE HE NEEDS. DR RUST HAS TAKEN A LOT OF TIME TRYING TO EXPLAIN WHY HE HAS THE MEDICATION HE IS CURRENTLY TAKING AND WHY HE CAN'T HAVE ADVIL. PT DOES NOT SEEM TO TAKE IN WHAT HE IS TOLD. PT HAS BEEN ABLE TO MAKE ALL NEEDS KNOWN. PT IS USING URINAL AT BEDSIDE. NO DISTRESS IS NOTED AT THIS TIME. PT IS A ONE PERSON TO BEDSIDE COMMODE. CALL LIGHT IS WITHIN REACH WILL CONTINUE MONITOR.
[2023-05-04 17:45] VITALS: BP 105/68
[2023-05-04 19:26] VITALS: BP 112/74
--- NOTE | 2023-05-04 22:52 | NUR ---
EDUCATED PT ON NEED FOR LISINOPRIL ADDED TO EMAR. PT UNDERSTANDS MED IS TO INCREASE EFFECTIVENESS OF HEART'S ABILITY TO PUMP.
[2023-05-05] VITALS (7 sets, daily range): BP systolic 100–109; BP diastolic 63–80
--- NOTE | 2023-05-05 04:57 | NUR ---
SHIFT SUMMARY PT ADMIT FOR HYPOVOLEMIC SHOCK AND HYPOTENTION. PT EXPERIENCING BOUTS OF PARANOIA. SEVERE PITTING EDEMA BLE. PT SUGGESTS A POSSIBLE ANTIBIOTIC SENSITIVITY/ADVERSE REACTION TO "SOMETHING I GOT BEFORE". PT RECEIVING LASIX AND ALBUMIN. WOUND ON RLE. NEW ONSET HF. BNP 2342. PT TALKATIVE AND PLEASANT.
[2023-05-05 05:51] LABS: Albumin, Blood 3.4 g/dL (3.4-5.0); Anion Gap 2 mmol/L (6-16); Blood Urea Nitrogen 21 mg/dL (8-24); Bun/Creatinine Ratio 21.9 (12.0-20.0); CO2, Blood 41 mmol/L (21-32); Calcium, Blood 8.6 mg/dL (8.5-10.1); Chloride, Blood 94 mmol/L (98-108); Creatinine, Blood 0.96 mg/dL (0.60-1.20); Glomerular Filtration Rate 82 (60-); Glucose, Blood 77 mg/dL (70-99); Magnesium, Blood 1.8 mg/dL (1.6-2.4); Phosphorus, Blood 4.3 mg/dL (2.5-4.9); Potassium, Blood 3.8 mmol/L (3.5-5.5); Sodium, Blood 137 mmol/L (136-145)
--- NOTE | 2023-05-05 16:12 | NUR ---
PT AOX4 AND DOES COOPERATE WITH MOST CARE. PT IS ABLE TO CALL AND MAKE NEEDS KNOWN. PT CONTINUE TO STATE HE THINKS THE ABX ARE MAKING HIM SWEAT AND IS FIXATED ON THIS. HE ALSO DOES NOT LIKE THE IDEA OF GOING TO A SNF, BUT IN THE SAME BREATH HE SAYS IT IS NOT SAFE FOR HIM TO GO LIVE AT HOME. THIS PAINTER AND DECORATOR ALONG WITH DR RUST, COLIN, WOUND CARE NURSE ETC HAVE ALL TALKED EXTENSIVELY WITH PT. HE DOES NOT SEEM TO BE ABLE TO MAKE A CLEAN DISCISION AT THIS TIME. EVERYONE IS TRYING TO HEAR HIM AND EXPLAIN ALL OF HIS CARE TO HIM AND HIS OPTIONS. PT TALKED WITH DR RUST WELL ABOUT FEELING DEPRESSED AND ANXIOUS NOT LIKING HOW SEROQUEL MAKES HIM FEEL DRUGGED. DR RUST REQUESTED DR KIDD TO BE NOTIFIED TO SEE IF HE COULD ADD ANY MEDICATION TO HELP. DR CULVER STATED HE HAS TRIED TO ENCOURAGE PT TO START TAKING LEXAPRO WITH PT AND PT HAS REFUSED MULTIPLE TIMES. WHEN PT CONFRONTED WITH THE IDEA TO START LEXPRO TO HELP HIS MOOD BY THIS PAINTER AND DECORATOR PT STATED HE DID NOT WANT TO START MEDICATION LIKE THIS. THIS PAINTER AND DECORATOR HAS TRIED TO BE ENCOURAGING POSSIBLE FOR PT IN HOPES HE CAN COME TO A SAFE DECISION ABOUT HIS CARE. CALL LIGHT IS WITHIN REACH WILL CONTINUE TO MONITOR.
[2023-05-06 00:42] VITALS: BP 98/68
[2023-05-06 01:57] VITALS: BP 102/72
--- NOTE | 2023-05-06 05:29 | NUR ---
SHIFT SUMMARY PT HAD MULTIPLE INSTANCES OF STOMACH UPSET. GAVE PEPSID PER EMAR. PT COMPLAINED HE WAS STILL HAVING A "SOUR STOMACH". OFFERED HIM GAS RELIEF CHEW. AFTER ADMINISTRATION, HE BEGAN TO HAVE PAINFUL BLOATING. MD PRESCIBED GI COCKTAIL. THIS WORKED TO CALM STOMACH UPSET WELL PROVIDE PT WITH PAIN RELIEF AND ABLE TO RELAX AND SLEEP. PT PLEASANT AND COOPERATIVE WITH CARE. HAS REQUESTED HIS MEDICATION BE REEXAMINED BY MD TO DETERMINE IF HIS MEDICATION PLAN IS STILL APPROPRIATE. HAS STATED HE DOES NOT WANT SEROQUIL OR PROBIOTICS ANY LONGER. HE HAS BEEN HAVING SEVERAL INSTANCES OF COLD SWEATS, HOT FLASHES, AND ITCHINESS. ALSO COMPLAINED OF DIZZINESS UPON STANDING AFTER GI COCKTAIL. CONTINUES TO HAVE PARANOIA AND ANXIETY.
[2023-05-06 07:15] VITALS: BP 103/53
[2023-05-06 09:10] LABS: Bun/Creatinine Ratio 27.7 (12.0-20.0); Creatinine, Blood 0.9 mg/dL (0.60-1.20); Magnesium, Blood 1.9 mg/dL (1.6-2.4); Phosphorus, Blood 3.3 mg/dL (2.5-4.9); Potassium, Blood 3.7 mmol/L (3.5-5.5)
--- NOTE | 2023-05-06 09:31 | NUR ---
WOUND CARE LATE ENRTY. PT IS CONCERNED WITH HEALING RATE OF L DORSAL FOOT WOUND. HE FEELS THAT IT IS "INFECTED" AND THAT "HE KNOWS HIS BODY AND THIS SHOULD BE HEALED" PT EDUCATED ON S/S OF INFECTION. PT EDUCATED THAT D/T AGE, VASCULAR STATUS, AND WOUND LOCATION THAT WOUND MAY TAKE LONGER TO HEAL THAN WHEN HE WAS YOUNGER. PROVIDED ASSURANCE THAT WOUND DEPTH AND MARGINS ARE DECREASING AND SHOWING NO OUTWARD S/S OF INFECTION AND WOUND IS ON A GOOD HEALING TRAJECTORY PROVIDED EDUCATION ON OUTPATIENT WOUND CENTER AND CARE THAT WILL BE PROVIDED TO ASSIST WITH HEALING HIS WOUND AFTER DISCHARGE. WOUND THEN CLEANSED WITH NS. PRIMARY DRESSING CHANGED TO MEDIHONEY ALGINATE, COVERED WITH EXU-DRY/GAUZE/BRITTNEY.
--- NOTE | 2023-05-06 12:04 | NUR ---
AT ~ 1115, PATIENT C/O HAVING FULL BLADDER BUT UNABLE TO URINATE. ASSISTED PT TO STAND AT SIDE OF BED TO USE URINAL AND HE VOIDED ~ 100 ML CLEAR YELLOW URINE. AFTER PT WENT BTB, HE CONTINUED TO C/O URGENCY AND THE SENSATION OF A FULL BLADDER. THIS AUTHOR PERFORMED BLADDER SCAN PER PROTOCOL, FOUND PT HAD 19 ML OF RESIDUAL URINE IN BLADDER. DURING THIS EPISODE, PT BEGAN HYPERVENTILATING WITH RR >30 BPM. HAD NC WITH OXYGEN AT 4 L/MIN; CHECKED O2 SAT, WAS 100%, HR WAS 106 BUT TRENDED DOWN TO 70'S QUICKLY AND MAINTAINED. PT HAD ALSO PLACED A NRB MASK OVER HIS FACE IN ADDITION TO THE NC, ALSO WITH OXYGEN @ 4 L/MIN. HE C/O SOB, EVEN THOUGH HIS O2 SAT WAS 100%, STATING "I HAVE A FINGER ONE AT HOME AND IT'LL SHOW THE SAME THING RIGHT BEFORE I PASS OUT ON THE TOILET." TRIED TO EXPLAIN TO PATIENT THAT, IN THAT CASE, OXYGENATION WOULDN'T BE THE PROBLEM BUT IT'S MORE LIKELY THAT HIS BP DROPPED OR WAS LOW TO START WITH. HE CONTINUED TO ARGUE. REFUSED ALL ATTEMPTS TO EDUCATE HIM ABOUT CHF, LASIX, AND HYPOTENSION. THIS AUTHOR LEFT THE ROOM.
[2023-05-06 13:45] VITALS: BP 102/70
--- NOTE | 2023-05-06 14:12 | NUR ---
CALLED DR. KIDD PER REQUEST FROM DR. FUENTES. PROVIDER STATED HE WILL SPEAK TO DR. RUST BY PHONE.
[2023-05-06 16:55] VITALS: BP 108/60
--- NOTE | 2023-05-06 17:41 | NUR ---
SHIFT SUMMARY: PT EXHIBITING OBSESSIVE BEHAVIOR TOWARDS MEDICATIONS, REPORTS EVERY SINGLE SYMPTOM THAT HE CALLS A "REACTION" WHEN IT IS A SIDE EFFECT. NONE OF THESE HAVE BEEN EMERGENT OR LIFE THREATENING. NO EVENTS ON TELEMETRY. WEARING O2 @ 4 L/MIN NC EVEN THOUGH HIS O2 SATS ARE 100% EVERY TIME IT'S CHECKED. PT MAKES WHEEZING-TYPE NOISE DURING EXERTION; WHILE TAKING HIS BP PRIOR TO MIDODRINE ADMINISTRATION, THE NOISE STOPPED HE WAS FIXATED ON HIS BP. THE NOISE STARTED AGAIN AFTER HE WAS ASSURED BY ME THAT HIS BP WAS GOOD. CLAIMED THAT HE "(HAS) NO WHERE TO GO" AT DISCHARGE AND HE PLANS TO APPEAL D/C WHEN IT HAPPENS. NEPHROLOGY CONSULT PENDING.
[2023-05-06 19:47] VITALS: BP 107/67
[2023-05-07] VITALS (7 sets, daily range): BP systolic 77–114; BP diastolic 47–83
--- NOTE | 2023-05-07 04:19 | NUR ---
SHIFT JENNA, PT RESTING IN BED, PT UP TO BEDSIDE TO VOID IN URINAL. PT AGREABLE BUT SAYS THINGS THAT MAKE PT SEEM SOEM WHAT PARANOID. PT HAD REFUSED HIS LASIX AND HAD STATED HE WOULD NOT TAKE IT AGAIN , PT SAID IT MADE HIM CRAMPY SWEATY AND A FEW OTHER THINGS .T SAID HE LOOKED IT UP ON [employer] AND HE HAD 5 OF THE 12 SIDE AFFECTS. PT WENT ON WITH A STORY ABOUT [facility] HOW IT HAD [place] BLOOD IN IT AND SOMETHING ABOUT A TOWN THAT THE GOVERMENT SPREAD IT IN THE TOWN AND THE PEOPLE . PT SEEMS ORIENTED X 4. PT CONCERNED ABOUT BEING DC. PT NOT WANTING TO GO. PT FEELS HE STILL HAS AN INFECTION. CALL LIGHT IN REACH.
[2023-05-07 05:03] LABS: PCO2 Arterial 61.8 mmHg (35-45); PO2 Arterial 141 mmHg (80-100); pH Blood Arterial 7.37 (7.35-7.45)
[2023-05-07 05:39] LABS: BASOPHILS ABSOLUTE AUTO 0.01 K/mm3 (0.00-0.23); BASOPHILS PERCENT AUTO 0 % (0-2); EOSINOPHILS ABSOLUTE AUTO 0.04 K/mm3 (0.00-0.68); EOSINOPHILS PERCENT AUTO 1 % (0-6); Hematocrit 29.8 % (37.0-53.0); Hemoglobin 9.5 g/dL (13.5-17.5); IMMATURE GRAN ABSOLUTE AUTO 0.04 K/mm3 (0.00-0.10); IMMATURE GRAN PERCENT AUTO 1 % (0-1); LYMPHOCYTES ABSOLUTE AUTO 0.77 K/mm3 (0.84-5.20); LYMPHOCYTES PERCENT AUTO 12 % (21-46); MONOCYTES ABSOLUTE AUTO 0.66 K/mm3 (0.16-1.47); MONOCYTES PERCENT AUTO 10 % (4-13); Mean Corpuscular HGB 28.9 pg (26.0-34.0); Mean Corpuscular HGB Conc 31.9 g/dL (31.5-36.5); Mean Corpuscular Volume 91 fL (80-100); Mean Platelet Volume 8.7 fL (9.1-12.4); NEUTROPHILS ABSOLUTE AUTO 4.88 K/mm3 (1.96-9.15); NEUTROPHILS PERCENT AUTO 76 % (41-73); Platelet Count 148 K/mm3 (150-400); RDW Coefficient Variation 15.8 % (11.7-14.2); RDW Standard Deviation 52.3 fL (35.1-46.3); Red Blood Cell Count 3.29 M/mm3 (4.30-5.90)
[2023-05-07 05:57] LABS: Albumin, Blood 3.9 g/dL (3.4-5.0); Anion Gap 5 mmol/L (6-16); Blood Urea Nitrogen 31 mg/dL (8-24); Bun/Creatinine Ratio 34.1 (12.0-20.0); CO2, Blood 36 mmol/L (21-32); Calcium, Blood 9.2 mg/dL (8.5-10.1); Chloride, Blood 95 mmol/L (98-108); Creatinine, Blood 0.91 mg/dL (0.60-1.20); Glomerular Filtration Rate 88 (60-); Glucose, Blood 94 mg/dL (70-99); Magnesium, Blood 2.1 mg/dL (1.6-2.4); Potassium, Blood 3.3 mmol/L (3.5-5.5); Sodium, Blood 136 mmol/L (136-145)
[2023-05-07] MEDS ORDERED: MIDO5 PO (12:22)
[2023-05-07] MEDS ORDERED: B-1100 M1 PO (12:24)
[2023-05-07] MEDS ORDERED: QUET25 PO (12:24)
--- NOTE | 2023-05-07 16:45 | NUR ---
SHIFT SUMMARY- PT HAS A FACILITY DISCHARGE ORDER WELL WOUND CLINIC REFERRAL. PT IS FILEING FOR AN APPEAL. CARE MANAGEMENT AND PT ADVOCATE ARE INVOLVED WITH THE CASE. HENRY (PT ADVOCATE) WAS IN TO SEE THE PT EARLIER TODAY. PT HAS BEEN USING THE URINAL INDEPENDENTLY T/O THE DAY. HE STATES HE IS CALLING FOR ASSISTANCE BUT NEEDS TO GO WHEN HE CALLS. WHEN STAFF OFFER TO ASSIST THE PT TO USE THE URINAL ON CARE ROUNDS HE DECLINES. PT IS ALERT AND ORIENTED 1PA WITH TRANSFERS AND AMBULATION. PT HAS SOME PARANOID THOUGHTS REGUARDING MEDICATIONS AND SIDE EFFECTS, HE REFERENCES [employer] OFTEN, AND CONVEYS DISTRUST IN DOCTORS. PT STATES HE IS TERRIBLY DEPRESSED, BUT IS UNWILLING TO TAKE ANTI DEPRESSANTS, SAYING THEY TAKE WEEKS TO BUILD UP IN YOUR SYSTEM AND CHANGE YOUR BRAIN CHEMISTRY. THE PT THEN STATED "I DON'T WANT TO TAKE A MEDICATION THAST IS GONNA CHANGE MY BRAIN, I WANT TO TAKE SOMETHING THAT WILL MAKE ME FEEL LIKE I USED TO." (MAYBE POOR INSIGHT INTO HIS HEALTH ISSUES). THE PT WAS VISITED BY NEPHROLOGY, PSYCH AND THE HOSPITALIST; CARE MANAGEMENT AND PT ADVOCATE ALSO VISITED WITH HIM. PT SEEMS TO BE UNWILLING TO LISTEN WHEN THE DOCTORS TRY TO EXPLAIN WHY THEY ARE ORDERING THE MEDS THEY ARE. PT IS PLEASENT (MOSTLY) WITH NURSING STAFF. HE IS WILLING TO TAKE THE MEDICATIONS HE THINKS HE NEEDS; HE REFUSES OTHER MEDS, ALTHOUGH HE ASKS WHY THEY ARE ORDERED, HE DOES NOT APPEAR TO LISTEN TO THE ANSWER. PT IS CURRENTLY IN BED, CALL LIGHT IN REACH, NO S&S OF DITRESS. O2 SATS 100% ON 4L VIA NC. ATTEMPTS TO TITRATE THE PT O2 HAVE BEEN DIFFICULT THE PT STATES THIS IS THE O2 HE HAS ORDERED. PT SEEMS VERY RESISTANT TO CHANGE.
--- NOTE | 2023-05-07 21:19 | NUR ---
When getting beginning of shift vitals, pt was difficult to arouse, and was agitated that I had awoken him for vitals. I had checked on him 20 minutes prior to 2100, and informed him I would be back to get his vitals when his phone call was finished. He then stated that he was "very tired," and "hadn't sleptfor 20 days." I told him after I had gotten his vitals and everything he needed that I would let him sleep. He then became agitated asking "Will you?" and repeating "I highly doubt that." several times. I attempted to de escalate the situation, informing him that I had no need to wake him up at this time after vitals were done, and would be more than happy to let him rest. He requested more tissues before I left the room.
[2023-05-08 02:35] VITALS: BP 119/70
--- NOTE | 2023-05-08 04:24 | NUR ---
[place]IV[place], PT RESTING IN BED, PT SLEPT FOR A WHILE LAST NOC NOW AWAKE LOOKING AT PHONE. PT ABLE TO AMBULATE AND CAN STAND AT BEDSIDE TO VOID BUT AT TIMES SAYS HE CA NOT WALK AND NEEDS HELP HOLDING URINAL. PT USUALY ABLE TO DO BOTH. PT HAD O2 DOWN TO 1L AND HAD THE BUBBLER ON. PT LATER IN SHIFT WATED BUBBLER OFF AND INSISTED O2 BE TURNED UP TO 2 EVEN THOUGH SATS WERE 98% ON 1 L NC. PT REFUSING SOME MEDS AND TAKING SOME. PT WANTING TO KNOW WHAT MEDS ARE FORE THEN REFUSING. CALL LIGHT IN REACH.
--- NOTE | 2023-05-08 07:45 | NUR ---
CALLED DR MCGUIRE- PER DR RUST THE PT IV ALBUMIN WAS TO BE GIVEN WITH THE IV LASIX. IF THE PT REFUSES IV LASIX HOLD ALBUMIN. IV LASIX WAS CHANGED TO PO LAST NIGHT. CALLED DR MCGUIRE TO CLARIFY IF IV ALBUMIN STILL NEEDS TO BE GIVEN. SHE WILL REVIEW. WAITING FOR A CALL BACK.
[2023-05-08 07:54] VITALS: BP 103/65
--- NOTE | 2023-05-08 08:01 | NUR ---
RECIEVED A CALL FROM DR MCGUIRE- DENNISE TO DC THE IV ALBUMIN.
[2023-05-08 08:41] LABS: Hemoglobin 9.7 g/dL (13.5-17.5); Mean Corpuscular HGB 28.2 pg (26.0-34.0); Mean Corpuscular HGB Conc 31.3 g/dL (31.5-36.5); Mean Corpuscular Volume 90 fL (80-100); Mean Platelet Volume 8.3 fL (9.1-12.4); Platelet Count 141 K/mm3 (150-400); RDW Coefficient Variation 15.6 % (11.7-14.2); RDW Standard Deviation 51.7 fL (35.1-46.3); Red Blood Cell Count 3.44 M/mm3 (4.30-5.90)
[2023-05-08 08:58] LABS: Creatinine, Blood 0.8 mg/dL (0.60-1.20); Potassium, Blood 3.5 mmol/L (3.5-5.5)
--- NOTE | 2023-05-08 10:33 | NUR ---
PT HAD A COMPLAINT OF FEELING THE NEED TO PEE, BUT HE IS NOT ABLE TO GET ANY URINE OUT. CALLED DR MCGUIRE AFTER A BLADDER SCAN SHOWED 455ML IN THE BLADDER. RECIEVED A OT ORDER FOR STRAIGHT CATH.
--- NOTE | 2023-05-08 10:57 | NUR ---
STRAIGHT CATH PERFORMED- STERILE TECHNIQUE MAINTAINED TOWER TRUCK DRIVER PRESENT FOR ASSISTANCE. PT PERFORMED HIS OWN [place] CARE THEN AREA SANITIZED AND CATHETER INSERTED WITHOUT DIFFICULTY. 350ML OF DARK YELLOW URINE WAS PASSED THROUGH THE CATHETER, WHEN NO MORE FLOW WAS NOTED CATHETER WAS REMOVED.
[2023-05-08 13:21] VITALS: BP 115/68
[2023-05-08 14:33] VITALS: BP 120/74
[2023-05-08 18:02] VITALS: BP 105/53
--- NOTE | 2023-05-08 19:42 | NUR ---
SHIFT SUMMARY- PT ALERT AND ORIENTED. HE HAS DC ORDERS FROM YESTERDAY, HE FILED AN APPEAL AND THAT WAS DENIED. THE PT CALLED TO FILE AN APPEAL TO THE APPEAL AND WAS TOLD HE WOULD GET A CALL FROM A 1 800 NUMBER (PER THE PT) PT STATES HE HAS NOT RECIEVED THAT CALL. AFTER THE STRAIGHT CATH THIS MORNING, THE PT HAS BEEN VOIDING SMALL AMOUNTS 100-150ML PER VOID, WICH HE WAS DOING PREVIOUSLY. PT DECLINED THE LOVENOX AND MIRALAX THIS MORNING. PT HAS HAD NO OTHER ACUTE CHANGE THIS SHIFT. THE PT HAS CALLED THIS RN TO THE BEDSIDE SEVERAL TIMES TO ATTEMPT TO GET SOME SUGGESTION ABOUT HIS DISCHARGE. THIS RN EXPLAINED TO THE PT HE HAS DC ORDERS, HE FILED AN APPEAL, THAT IS NOT SOMETHING THIS RN CAN ASSIST WITH OR COMMENT ON. THE RECOMENDATION (FROM THERAPY) IS FOR THE PT TO DC BACK TO [facility] FOR SNF, IF HE CHOOSES NOT TO DO THAT, THAT IS HIS CHOICE. PT STATED HE IS GOING TO "GO HOME" WHERE HE "WILL ", BECAUSE HE HAS NO ONE TO "TAKE CARE" OF HIM, THE RECOMENDATION IS TO GO TO SNF FOR THIS REASON. PT IS NOT WILLING TO GO TO [facility], HE HAS ALSO MENTIONED TODAY HE WILL NOT GO TO [facility] EITHER. REPORT COMPLETED WITH NIGHT RN. PT IN BED, CALL LIGHT IN REACH NO S&S OF DISTRESS. O2 HAS BEEN SET TO 2L VIA NC ALL DAY TODAY SATS 96-100%.
[2023-05-08 21:03] VITALS: BP 105/88
--- NOTE | 2023-05-09 04:27 | NUR ---
SHIFT SUMMARY PT ADMIT FOR HYPOTENTION AND HYPOVOLEMIC SHOCK. PT READY FOR DISCHARGE FROM HOSPITAL. PT HAS DISPUTED DISCHARGE STATING HE DOESN'T WANT TO GO TO [facility], AND HE "MAY WELL GO HOME TO " IF HE HAS TO LEAVE THE HOSPITAL. THIS RN PROVIDED INFORMATION TO WHAT HIS DIAGNOSES LISTED ON HIS DISCHARGE PAPERS MEAN. PT STATES HE DOES NOT "AGREE WITH WHAT THE DOCTORS ARE SAYING" STILL EXIBITING SIGNS OF PARANOIA AND ANXIETY. REFUSES PHARMACOLOGICAL TREATMENT FOR THE ANXIETY. STATES "IT KNOCKS ME OUT AND MAKES ME ALL GROGGY LIKE I'M HUNGOVER AND I DON'T WANT TO FEEL THAT WAY." REQUESTED GI COCKTAIL FOR STOMACH PAIN/DISTENTION. PT QUITE UPSET WITH HIS CARE STATING HE DOESN'T BELIEVE THE DOCTORS ARE COMMUNICATING OR PROVIDING HIM WITH FAIR TREATMENT. PT RECEIVING WOUND CARE FOR WOUND ON LEFT FOOT.
[2023-05-09 05:25] LABS: BASOPHILS ABSOLUTE AUTO 0.01 K/mm3 (0.00-0.23); BASOPHILS PERCENT AUTO 0 % (0-2); EOSINOPHILS ABSOLUTE AUTO 0.07 K/mm3 (0.00-0.68); EOSINOPHILS PERCENT AUTO 1 % (0-6); Hematocrit 33.2 % (37.0-53.0); Hemoglobin 10.4 g/dL (13.5-17.5); IMMATURE GRAN ABSOLUTE AUTO 0.04 K/mm3 (0.00-0.10); IMMATURE GRAN PERCENT AUTO 1 % (0-1); LYMPHOCYTES ABSOLUTE AUTO 1.04 K/mm3 (0.84-5.20); LYMPHOCYTES PERCENT AUTO 16 % (21-46); MONOCYTES ABSOLUTE AUTO 0.64 K/mm3 (0.16-1.47); MONOCYTES PERCENT AUTO 10 % (4-13); Mean Corpuscular HGB 28.7 pg (26.0-34.0); Mean Corpuscular HGB Conc 31.3 g/dL (31.5-36.5); Mean Corpuscular Volume 92 fL (80-100); Mean Platelet Volume 8.6 fL (9.1-12.4); NEUTROPHILS ABSOLUTE AUTO 4.88 K/mm3 (1.96-9.15); NEUTROPHILS PERCENT AUTO 73 % (41-73); Platelet Count 159 K/mm3 (150-400); RDW Coefficient Variation 15.5 % (11.7-14.2); RDW Standard Deviation 52.6 fL (35.1-46.3); Red Blood Cell Count 3.62 M/mm3 (4.30-5.90); White Blood Cell Count 6.68 K/mm3 (4.00-11.30)
[2023-05-09 06:10] LABS: Bun/Creatinine Ratio 37.6 (12.0-20.0); Calcium, Blood 9.2 mg/dL (8.5-10.1); Creatinine, Blood 0.77 mg/dL (0.60-1.20); Potassium, Blood 3.9 mmol/L (3.5-5.5)
[2023-05-09 07:06] VITALS: BP 104/61
--- NOTE | 2023-05-09 12:09 | NUR ---
WOUND CARE PERFORMED- DRESSIN G REMOVED AND THE FOOT AND WOUND WERE CLEANED. PT DENIED ANY PAIN WITH THE DRESSING CHANGE. COVERED WITH THE SAME TYPE OF DRESSING THAT WAS ON PRIOR TO THE CHANGE.
[2023-05-09 13:19] VITALS: BP 96/78
[2023-05-09 17:37] VITALS: BP 123/85
[2023-05-09 19:17] VITALS: BP 129/81
--- NOTE | 2023-05-09 20:03 | NUR ---
SHIFT SUMMARY- PT IN BED, CALL LIGHT IN REACH NO S&S OF DISTRESS. HE HAS BEEN ANXIOUS OVER DISCHARGE FOR THE PAST TWO DAYS. HE HAS FILED TWO APPEALS, THE LAST RULING WILL BE TOMORROW. PT IS AWARE. HE HAS ORDERS TO DC TO SNF AND HE DOES NOT WANT TO GO THERE. PT IS AWARE THE DR SAY HE IS STABLE ENOUGH TO DISCHARGE TO SNF. PASSED ALL ON IN REPORT AT THE BEDSIDE TO NIGHT RN. PT HAS BEEN TALKING ON THE PHONE WITH FRIENDS ALL DAY AND WAS AGAIN ON THE PHONE AT THE TIME OF REPORT.
[2023-05-10 03:01] VITALS: BP 149/73
--- NOTE | 2023-05-10 04:33 | NUR ---
NOTE PT AWAKE AND ALERT. COOPERATIVE WITH CARE. PT REQUESTED MELATONIN LAST NIGHT. HE RESTED QUIELTY UNTIL 0400. HE WOKE UP AND REQUESTED HIS SYNTHROID BECAUSE HE WAS GOING BACK TO SLEEP. HE DIDN'T WANT TO BE AWAKENED LATER. GAVE HIM A WARM BLANKET AND HE RESTED WITH EVEN RESPIRATIONS. CARE ONGOING.
[2023-05-10 07:34] VITALS: BP 109/73
[2023-05-10 16:52] VITALS: BP 117/64
--- NOTE | 2023-05-10 17:15 | NUR ---
CALLED CALLED TO NOTIFY OF PT'S HEART RHYTHM, PER OK TO REMOVE TELE.
--- NOTE | 2023-05-10 17:36 | NUR ---
SHIFT SUMMARY NO ACUTE CHANGES THIS SHIFT. CALL LIGHT WITHIN REACH AND PT ABLE TO MAKE NEEDS KNOWN. PT APPEAL CONTINUES TO BE PENDING, SEE CARE COORDINATION NOTES.
[2023-05-10 20:02] VITALS: BP 110/60
--- NOTE | 2023-05-11 04:08 | NUR ---
NOTE PT VERY VOCAL ABOUT DISCHARGING HOME TODAY. VSS. USING CALL LIGHT APPROPRIATELY. VOIDNG PER URINAL. FOOT DRESSING CD&I. HE HAS DENIED PAIN/DISCOMFORT. VSS. CARE ONGOING.
[2023-05-11 08:00] VITALS: BP 107/72
[2023-05-11 13:22] VITALS: BP 112/45
[2023-05-11 15:56] VITALS: BP 117/75
[2023-05-11 16:58] LABS: Source, Urine Clean Catch
[2023-05-11 17:04] LABS: Bilirubin, Urine Neg (Neg); Blood, Urine Neg (Neg); Glucose Qualitative, Urine Neg (Neg); Ketones, Urine Neg (Neg); Leukocyte Esterase, Urine Neg (Neg); Nitrite, Urine Neg (Neg); Protein, Urine Neg (Neg); Urobilinogen, Urine NORM (Normal)
[2023-05-11 17:10] LABS: Appearance, Urine Clear (Clear); Color, Urine Pale Yellow (P-Yellow)
--- NOTE | 2023-05-11 18:26 | NUR ---
SHIFT SUMMARY PT STATES HE NEEDS HELP STANDING UP NEXT TO BED TO USE URINAL BUT APPEARS STABLE ON FEET WHEN STANDING. DRESSING INTACT TO LLE BUT BRITTNEY WRAP LOOSENED PER HIS REQUEST STATING IT FELT LIKE HIS TOES WERE BECOMING NUMB. STATED HE FELT LIKE HE WASN'T EMPTYING HIS BLADDER FULLY-PERFORMED A BLADDER SCAN AFTER VOIDING WITH 250ML NOTED. FLOMAX ORDERED AND GIVEN. US SENT DUE TO PT FEELING LIKE IT BURNED AND WAS UNCOMFORTABLE WITH VOIDING. UA NEGATIVE.
[2023-05-11 19:45] VITALS: BP 110/81
[2023-05-12] VITALS (7 sets, daily range): BP systolic 99–140; BP diastolic 68–112
--- NOTE | 2023-05-12 05:40 | NUR ---
SHIFT SUMMARY NOC PT A/O X 4. TALKATIVE AND COOPERATIVE WITH CARE. PT HAS LAST APPEAL SCHEDULED FOR TODAY FOR SN[facility] REFUSAL. PT EXPECTED TO DISCHARGE HOME OTHERWISE. PT HAS WOUND LLW WITH DRESSING C/D/I. PT HAS BEEN VOIDING USING BEDSIDE URINAL. PT HAS SLEPT FOR MOST OF SHIFT. PT ON O2 2.5L/NC. BP STABLE. PT IS CURRENTLY RESTING WITH BED IN LOWEST POSITION, AND CALL LIGHT WITHIN REACH.
--- NOTE | 2023-05-12 12:23 | NUR ---
WOUND CARE L FOOT WOUND MARGINS CONTINUE TO CONTRACT. NEW PHOTO AND ASSESSMENT IN HARD CHART. PRIMARY DRESSING CHANGED TO HYDROCOLLOD WITH 1X WEEK CHANGE PT EDUCATED ON DRESSING CHANGE, FREQUENCY AND S/S OF INFECTION. DRESSING SUPLLIES PROVIDED. PT VERBALIZED UNDERSTANDING
[2023-05-12] MEDS ORDERED: TAMS.4ER PO (12:54)
--- NOTE | 2023-05-12 15:59 | NUR ---
DISCHARGE SUMMARY PATIENT WITH NO ACUTE EVENTS DURING SHIFT. MEDICATED PER EMAR. DRESSING CHANGE PROVIDED BY SECRETARY BOARD OF COMMISSIONERS. MEDICATION AND EDUCATION PACKET PRINTED AND GIVEN TO PATIENT. [employer] LIBRARIAN VERBALLY REINFORCED NEED FOR FINDING PCP, AND TO FOLLOW UP WITH WOUND CLINIC REGARDLESS. PATIENT V/U. PATIENT LEFT UNIT AT 1542 VIA TRANSPORT CHAIR AND LEAVING VIA PRIVATE VEHICLE WITH FRIEND DON TO HIS HOME WITH HIS HOME O2.
== END 2023-05-12 15:52 | disposition home or self-care (01) | DRG 871 ==
LOC: ER 13:36 → ICUE 13:37 → MEDS 04-26 15:23 → ICUE 04-26 15:23 → MEDS 04-27 18:49 → ENPENDDIS 05-07 15:15 → EDPENDDIS 05-07 15:15 → MEDS 05-10 22:33
PROVIDERS: Emergency Medicine; Hospitalist; Internal Medicine; Student in an Organized Health Care Education/Training Program; ADMIT Family Medicine
PROC: 3E033XZ Introduction of Vasopressor into Peripheral Vein, Percutaneous Approach (ICD-10-PCS; principal; 2023-04-25)
PROC: 4A033R1 Measurement of Arterial Saturation, Peripheral, Percutaneous Approach (ICD-10-PCS; 2023-05-07)
DX: R57.1 Hypovolemic shock (principal); I50.23 Acute on chronic systolic (congestive) heart failure; E87.4 Mixed disorder of acid-base balance; J96.11 Chronic respiratory failure with hypoxia; J96.12 Chronic respiratory failure with hypercapnia; L03.116 Cellulitis of left lower limb; I96 Gangrene, not elsewhere classified; E87.1 Hypo-osmolality and hyponatremia; R57.0 Cardiogenic shock; F06.31 Mood disorder due to known physiological condition with depressive features; F06.4 Anxiety disorder due to known physiological condition; E87.8 Other disorders of electrolyte and fluid balance, not elsewhere classified; J44.9 Chronic obstructive pulmonary disease, unspecified; E03.9 Hypothyroidism, unspecified; H91.90 Unspecified hearing loss, unspecified ear; L97.529 Non-pressure chronic ulcer of other part of left foot with unspecified severity; D64.9 Anemia, unspecified; F10.20 Alcohol dependence, uncomplicated; F22 Delusional disorders; K21.9 Gastro-esophageal reflux disease without esophagitis; T50.2X5A Adverse effect of carbonic-anhydrase inhibitors, benzothiadiazides and other diuretics, initial encounter; E87.6 Hypokalemia; Z99.81 Dependence on supplemental oxygen; Z88.8 Allergy status to other drugs, medicaments and biological substances; Z91.148 Patient's other noncompliance with medication regimen for other reason; Z79.890 Hormone replacement therapy; Z79.52 Long term (current) use of systemic steroids; Z87.891 Personal history of nicotine dependence
CPT/HCPCS: 36415; 36600; 80048; 80053; 80069; 81003; 82533; 82607; 82746; 82803; 83735; 83880; 84100; 84484; 85025; 85027; 93005; 93010; 94760; 94762; 96361; 96365; 96366; 96372; 96375; 97110; 97116; 97161; 97530; 99284-25; A9270; G0378; J1120; J1650; J1940; J3010; J3411; J7030; J7050; J7060; J7512; P9047

== ENCOUNTER 2023-05-22 21:23 | Observation (INO) | payer MEDICARE, MEDICAID ==
[~2023-05-22] VITALS: Ht 170.2 cm; Wt 84.0 kg
[~2023-05-22 21:23] MED LIST changes: +B-1100 M1 PO; +MIDO5 PO; +QUET25 PO; +TAMS.4ER PO
[2023-05-22 21:45] LABS: BASOPHILS ABSOLUTE AUTO 0.01 K/mm3 (0.00-0.23); BASOPHILS PERCENT AUTO 0 % (0-2); EOSINOPHILS ABSOLUTE AUTO 0.04 K/mm3 (0.00-0.68); EOSINOPHILS PERCENT AUTO 0 % (0-6); Hematocrit 31.8 % (37.0-53.0); Hemoglobin 10.2 g/dL (13.5-17.5); IMMATURE GRAN ABSOLUTE AUTO 0.09 K/mm3 (0.00-0.10); IMMATURE GRAN PERCENT AUTO 1 % (0-1); LYMPHOCYTES ABSOLUTE AUTO 0.72 K/mm3 (0.84-5.20); LYMPHOCYTES PERCENT AUTO 6 % (21-46); MONOCYTES ABSOLUTE AUTO 0.58 K/mm3 (0.16-1.47); MONOCYTES PERCENT AUTO 5 % (4-13); Mean Corpuscular HGB 28.7 pg (26.0-34.0); Mean Corpuscular HGB Conc 32.1 g/dL (31.5-36.5); Mean Corpuscular Volume 90 fL (80-100); Mean Platelet Volume 8.8 fL (9.1-12.4); NEUTROPHILS PERCENT AUTO 87 % (41-73); Platelet Count 176 K/mm3 (150-400); RDW Coefficient Variation 15.4 % (11.7-14.2); RDW Standard Deviation 50.4 fL (35.1-46.3); Red Blood Cell Count 3.55 M/mm3 (4.30-5.90); White Blood Cell Count 11.34 K/mm3 (4.00-11.30)
[2023-05-22 22:03] LABS: Albumin, Blood 2.5 g/dL (3.4-5.0); Albumin/Globulin Ratio 0.8 (0.8-1.8); Bilirubin, Total 0.4 mg/dL (0.1-1.0); Bun/Creatinine Ratio 35.4 (12.0-20.0); Calcium, Blood 8.5 mg/dL (8.5-10.1); Creatinine, Blood 0.82 mg/dL (0.60-1.20); Globulin, Blood 3.3 g/dL (2.2-4.0); Potassium, Blood 3.7 mmol/L (3.5-5.5); Total Protein, Blood 5.8 g/dL (6.4-8.2)
[2023-05-22 22:46] LABS: Influenza A, PCR NEGATIVE (NEGATIVE); Influenza B, PCR NEGATIVE (NEGATIVE); Resp Syncytial Virus, PCR NEGATIVE (NEGATIVE); SARS-Cov-2 (COVID-19) PCR, MMC NEGATIVE (NEGATIVE)
--- NOTE | 2023-05-23 01:35 | NUR ---
NEW ADMIT. PATIENT ARRIVED TO ROOM 326 VIA GURNEY AND ONE PERSON TRANSPORT. PATIENT ABLE TO MOVE SELF FROM GURNEY TO BED BY SLIDING OVER. PATIENT ARRIVED WITH 3 L'S VIA NASAL CANNULA AND TANK-PATIENT SWITCH TO OXYGEN IN ROOM. PATIENT UP TO ROOM IN GROWN, PANTS AND SOCKS HE LEFT THE HOSPITAL IN FROM HIS MOST RECENT STAY A WEEK AGO.
[2023-05-23 01:37] VITALS: BP 132/87
[2023-05-23 02:29] LABS: BASOPHILS ABSOLUTE AUTO 0.01 K/mm3 (0.00-0.23); BASOPHILS PERCENT AUTO 0 % (0-2); EOSINOPHILS ABSOLUTE AUTO 0.05 K/mm3 (0.00-0.68); EOSINOPHILS PERCENT AUTO 0 % (0-6); Hematocrit 33.2 % (37.0-53.0); Hemoglobin 10.4 g/dL (13.5-17.5); IMMATURE GRAN ABSOLUTE AUTO 0.09 K/mm3 (0.00-0.10); IMMATURE GRAN PERCENT AUTO 1 % (0-1); LYMPHOCYTES ABSOLUTE AUTO 0.65 K/mm3 (0.84-5.20); LYMPHOCYTES PERCENT AUTO 6 % (21-46); MONOCYTES ABSOLUTE AUTO 0.57 K/mm3 (0.16-1.47); MONOCYTES PERCENT AUTO 5 % (4-13); Mean Corpuscular HGB 28.5 pg (26.0-34.0); Mean Corpuscular HGB Conc 31.3 g/dL (31.5-36.5); Mean Corpuscular Volume 91 fL (80-100); Mean Platelet Volume 8.6 fL (9.1-12.4); NEUTROPHILS ABSOLUTE AUTO 10.38 K/mm3 (1.96-9.15); NEUTROPHILS PERCENT AUTO 88 % (41-73); Platelet Count 156 K/mm3 (150-400); RDW Coefficient Variation 15.5 % (11.7-14.2); RDW Standard Deviation 51.4 fL (35.1-46.3); Red Blood Cell Count 3.65 M/mm3 (4.30-5.90); White Blood Cell Count 11.75 K/mm3 (4.00-11.30)
[2023-05-23 02:47] LABS: Albumin, Blood 2.6 g/dL (3.4-5.0); Albumin/Globulin Ratio 0.8 (0.8-1.8); Bilirubin, Total 0.4 mg/dL (0.1-1.0); Bun/Creatinine Ratio 37.3 (12.0-20.0); Calcium, Blood 8.6 mg/dL (8.5-10.1); Creatinine, Blood 0.75 mg/dL (0.60-1.20); Globulin, Blood 3.4 g/dL (2.2-4.0); Magnesium, Blood 2.1 mg/dL (1.6-2.4); Potassium, Blood 3.8 mmol/L (3.5-5.5)
--- NOTE | 2023-05-23 04:50 | NUR ---
SHIFT SUMMARY. PATIENT IS AOX4. PATIENT IS PLEASANT AND COOPERATIVE WITH CARE. PATIENT CHANGED INTO HOSPITAL GOWNW AND GIVEN NEW SOCKS. BANDAGE TO LEFT FOOT WOUND CHANGED, PICTURE OF WOUND IN CHART. PATIENT REPORTS THAT HE HAS NOT BEEN SLEEPING WELL AND HAVING ABDOMINAL AND BACK PAIN-MEDICATED FOR PAIN PER EMAR. PATIENT ABLE TO GET SOME REST WITH RESPIRATIONS EQUAL AND UNLABORED. BED IS LOCKED IN THE LOWEST POSITION WITH CALL LIGHT IN REACH. CARE ONGOING.
[2023-05-23 08:22] VITALS: BP 104/79
--- NOTE | 2023-05-23 09:00 | NUR ---
pt laying in bed, very talkative, reports pain this am, toradol given, he states it really helped last night, lungs are clear in [place], dim with exp wheezing in mid field and bases, currently on 3 liters 02 via n/c, which is his baseline, hrr, running st in the one teens with pvc's, no edema noted, ppp faint, cap refill <3 sec, vs stable, but soft b/p, piv to lac, site is clear and patent, btx4, abd flat soft nontender, voids without diff, via urinal, skin has dressings to b/l feet, no drainage noted, maew, able to stand and tx, jeremie call light in reach.
[2023-05-23 17:48] VITALS: BP 113/71
--- NOTE | 2023-05-23 18:39 | NUR ---
pt was not able to tolerate the mri well, was reported they didn't get good pix, upon return to room pt is complaining of bad back pain, spoke with him about what pain medicine he is willing to take, he didn't know, but said his only experience was percocet which really just made him confused, he agreed to try tramadol, ordered it. he states this evening after taking it that his pain is down to a 2/10, said his head a little swimmy, otherwise ok. no further changes this shift. call light in reach.
[2023-05-23 19:50] VITALS: BP 118/99
[2023-05-24 05:06] VITALS: BP 104/81
[2023-05-24 05:20] LABS: BASOPHILS ABSOLUTE AUTO 0.01 K/mm3 (0.00-0.23); BASOPHILS PERCENT AUTO 0 % (0-2); EOSINOPHILS ABSOLUTE AUTO 0.02 K/mm3 (0.00-0.68); EOSINOPHILS PERCENT AUTO 0 % (0-6); Hematocrit 30.7 % (37.0-53.0); Hemoglobin 9.7 g/dL (13.5-17.5); IMMATURE GRAN ABSOLUTE AUTO 0.09 K/mm3 (0.00-0.10); IMMATURE GRAN PERCENT AUTO 1 % (0-1); LYMPHOCYTES ABSOLUTE AUTO 0.58 K/mm3 (0.84-5.20); LYMPHOCYTES PERCENT AUTO 6 % (21-46); MONOCYTES ABSOLUTE AUTO 0.48 K/mm3 (0.16-1.47); MONOCYTES PERCENT AUTO 5 % (4-13); Mean Corpuscular HGB Conc 31.6 g/dL (31.5-36.5); Mean Corpuscular Volume 92 fL (80-100); NEUTROPHILS ABSOLUTE AUTO 8.06 K/mm3 (1.96-9.15); NEUTROPHILS PERCENT AUTO 87 % (41-73); Platelet Count 155 K/mm3 (150-400); RDW Coefficient Variation 15.1 % (11.7-14.2); RDW Standard Deviation 50.6 fL (35.1-46.3); Red Blood Cell Count 3.35 M/mm3 (4.30-5.90); White Blood Cell Count 9.24 K/mm3 (4.00-11.30)
[2023-05-24 05:45] LABS: Bun/Creatinine Ratio 42.1 (12.0-20.0); Creatinine, Blood 0.81 mg/dL (0.60-1.20); Potassium, Blood 4.5 mmol/L (3.5-5.5)
[2023-05-24 07:12] VITALS: BP 96/77
--- NOTE | 2023-05-24 07:37 | NUR ---
SHIFT SUMMARY. PATIENT IS ALERT AND ORIENTED X4. PATIENT IS PLEASANT AND COOPERATIVE WITH CARE. PATIENT IS A 1 PERSON ASSIST TO STAND. PATIENT CALLS APPROPRIATELY AND IS ABLE TO MAKE NEEDS KNOWN. PATIENT REPORTS THAT HE IS TIRED THIS EVENING. PATIENT SLEPT WELL T/O NIGHT-EASILY AROUSABLE, RESPIRATIONS EQUAL AND UNLABORED. PATIENT USES THE URINAL INDEPENDENTLY. PATIENTS WEIGHT THIS AM WAS AROUND 3KG LESS THAN ADMITTING WEIGHT-IT IS UNCLEAR IF PATIENT WAS WEIGHED WITH SHOES ON OR IF SHOES WERE OFF WITH INITAL WEIGHT. DISCUSSED WEIGHT WITH CHARGE NURSE. BED IS LOCKED IN THE LOWEST POSITION WITH CALL LIGHT IN REACH. NO S/S OF DISTRESS NOTED.
[2023-05-24 13:55] VITALS: BP 105/65
[2023-05-24] MEDS ORDERED: TRAM50 PO (17:39)
[2023-05-24] MEDS ORDERED: JARDIANCE10 MG PO (17:39)
[2023-05-24] MEDS ORDERED: OMEP20ER PO (17:39)
== END 2023-05-24 19:25 | disposition home or self-care (01) ==
LOC: ER 21:23 → MEDS 21:24
PROVIDERS: Emergency Medicine; Family Medicine; ADMIT Student in an Organized Health Care Education/Training Program
DX: R10.9 Unspecified abdominal pain (principal); I48.91 Unspecified atrial fibrillation; R07.9 Chest pain, unspecified; L97.529 Non-pressure chronic ulcer of other part of left foot with unspecified severity; I50.22 Chronic systolic (congestive) heart failure; J96.11 Chronic respiratory failure with hypoxia; E03.9 Hypothyroidism, unspecified; D64.9 Anemia, unspecified; M80.88XA Other osteoporosis with current pathological fracture, vertebra(e), initial encounter for fracture; Z20.822 Contact with and (suspected) exposure to COVID-19
CPT/HCPCS: 0241U; 36415; 71045; 74177; 80048; 80053; 83690; 83735; 83880; 84484; 85025; 93005; 93010; 94640; 94664; 94760; 94762; 96361; 96372; 96374; 96375; 96376; 99285-25; A9270; G0378; J1650; J1885; J7120; J7512; Q9967